=== PATIENT | male | born 1945 | race Caucasian/White ===

== ENCOUNTER 2017-09-10 04:44 | Inpatient (IN) | payer OTHER ==
[~2017-09-10] VITALS: Ht 172.7 cm; Wt 123.4 kg
[~2017-09-10 04:44] MED LIST: ACETAMINOPHEN650 M5 PO; ALDACTONE50 MG PO; AMARYL4 MG PO; APAP650 PO; ASCRIPTIN 325325 MG PO; ASPIR 8181 MG PO; ASPIRIN325 PO; ATORVASTATIN CA40 MG PO; CARVEDILOL25 MG; CARVEDILOL25 MG PO; CARVEDILOL6.25 MG PO; COLACE100 MG PO; COZAAR 50 MG TA50 M2 PO; CYCLOSET0.8 MG PO; IBUPROFEN 200200 M1 PO; KETOCONAZOLE60 GM; LANTUS SQ; LASIX 20 MG TAB20 MG PO; LASIX 40 MG TAB40 M2 PO; LASIX 80 MG TAB80 MG PO; LISINOPRIL10 MG PO; LISINOPRIL20 MG PO; LOVASTAT40 PO; MULTIVITAMINS1 EAC7 PO; TOUCH-TROL1 EACH; TOUJEO SOL300 UNIT/1 SQ; TOUJEO SOL300 UNIT/1 SUBQ; TRADJENTA5 MG PO; TYLENOL325 MG PO; WELCHOL 625 MG625 MG PO
[2017-09-10 04:45] VITALS: BP 157/94
[2017-09-10 05:07] LABS: URINE BILIRUBIN NEGATIVE (Negative); URINE BLOOD NEGATIVE (Negative); URINE CLARITY CLEAR; URINE COLOR YELLOW; URINE GLUCOSE-RANDOM 1+ (Negative); URINE KETONES NEGATIVE (Negative); URINE LEUKOCYTES-REFLEX NEGATIVE (Negative); URINE NITRITE-REFLEX NEGATIVE (Negative); URINE PROTEIN 2+ (Negative); URINE SPECIFIC GRAVITY >= 1.030 (1.005-1.030); URINE UROBILINOGEN 0.2 E.U./dl (0.2-1.0)
[2017-09-10 05:18] LABS: ABSOLUTE BASOPHILS 0.1 thou/uL (0.0-0.2); ABSOLUTE EOSINOPHILS 0.2 thou/uL (0.0-0.7); ABSOLUTE LYMPHOCYTES 1.7 thou/uL (0.8-5.3); ABSOLUTE MONOCYTES 0.6 thou/uL (0.0-1.2); ABSOLUTE NEUTROPHILS 6.8 thou/uL (1.6-8.1); BASOPHILS 0.6 %; EOSINOPHILS 2.3 %; HEMATOCRIT 33.3 % (42.0-52.0); HEMOGLOBIN 11.2 gm/dL (14.0-18.0); LYMPHOCYTES 18.6 %; MCH 29.8 pg (26.0-34.0); MCHC 33.5 g/dL (28.0-37.0); MONOCYTES 6.6 %; MPV 7.4 fl. (7.2-11.1); NUCLEATED RBCS 0 /100WBC; PLATELET COUNT* 357 thou/uL (150-400); POLYS 71.9 %; RBC 3.74 mil/uL (4.50-6.00); RDW-CV 14.2 % (10.5-14.5); WBC 9.4 thou/uL (4.0-11.0)
[2017-09-10 05:19] LABS: SQUAMOUS 0-3 Few /LPF (0-3)
[2017-09-10 05:20] LABS: AMORPHOUS URATES Moderate /LPF (None Seen); BACTERIA-REFLEX 1-9 Few /HPF (None Seen); CASTS None Seen /LPF (None Seen); MUCUS 0-3 Light strn/LPF (None Seen); URINE RBC 0-2 Rare /HPF (0-2); URINE WBC-REFLEX 0-5 Rare /HPF (0-5)
[2017-09-10 05:27] LABS: ANION GAP 4 mmol/L (7-16); BUN 29 mg/dL (7-18); CALCIUM 8.2 mg/dL (8.5-10.1); CHLORIDE 103 mmol/L (98-107); CO2 30 mmol/L (21-32); CREATININE 1.4 mg/dL (0.6-1.3); GLUCOSE 273 mg/dL (70-99); POTASSIUM 4.5 mmol/L (3.5-5.1); SODIUM 137 mmol/L (136-145)
[2017-09-10 05:32] LABS: PROTIME 9.9 Seconds (9.20-11.50)
[2017-09-10 05:38] LABS: ALBUMIN 2.8 g/dL (3.4-5.0); ALKALINE PHOSPHATASE 96 U/L (46-116); NT-PRO BRAIN NAT PEPTIDE 2800 pg/mL (<300); SGOT 18 U/L (15-37); SGPT 27 U/L (30-65); TOTAL BILIRUBIN 0.4 mg/dL (<0.1-1.0); TOTAL PROTEIN 6.4 g/dL (6.4-8.2); TROPONIN-I LEVEL <0.06 ng/mL (<0.06)
[2017-09-10 06:03] LABS: INFLUENZA A ANTIGEN None Detected (None Detect); INFLUENZA B ANTIGEN None Detected (None Detect)
[2017-09-10 07:48] VITALS: BP 161/89
[2017-09-10 08:00] VITALS: BP 106/89
[2017-09-10 11:51] VITALS: BP 165/82
--- NOTE | 2017-09-10 12:59 | EKG ---
[place] [address] ELECTROCARDIOGRAM REPORT Name: ALBARO HALE Room: [address] ADM IN .R.#: [id number] Admission: 09/10/17 Attend Phys: Eric Mullen Discharge: Date of : 43 Report #: [id number] THIS REPORT FOR: //name// [facility] ED Test Date: 2017-09-10 Test Time: 04:48:12 Pat Name: ALBARO HALE Department: Room: [facility] Gender: M Assistant Store Manager Operations: GUSTAVO Grewal : 1945 Requested By: Taylor Vazquez Order Number: [id number] MD: Jack Ellis Measurements Intervals [place] Rate: 73 P: 61 MO: 194 QRS: -1 QRSD: 159 T: 152 QT: 429 QTc: 473 Interpretive Statements Sinus rhythm Left bundle branch block Compared to ECG 11/06/2015 05:33:38 No significant changes Electronically Signed On 09-10-2017 12:59:39 CORE SHAPER SIDES by Jack Ellis [email or web address] <ELECTRONICALLY SIGNED> By: Jack Ellis MD, [facility] 09/10/17 1259 0448 0448 Jack Ellis MD, FACC /EPI
--- NOTE | 2017-09-10 15:22 | 2DMMODE ---
[place] [address] 2 D/M-MODE ECHOCARDIOGRAM Name: ALBARO HALE Room: [address] IN [facility]#: [id number] Admission: 09/10/17 Attend Phys: Brain Herring Discharge: Date of : 43 Date of Service: 09/10/17 1522 Report #: [id number] THIS REPORT FOR: //name// APPROVED REPORT Study performed: 09/10/2017 09:45:36 EXAM: Comprehensive 2D, Doppler, and color-flow Echocardiogram Patient Location: In-Patient Room #: [facility] Status: routine BSA: 2.33 HR: 87 bpm BP: 106/89 mmHg Rhythm: NSR Other Information Technically limited study due to body habitus. Indications Dyspnea 2D Dimensions LVEF(%): 63.64 (>50%) IVSd: 15.27 (7-11mm) LVOT Diam: 23.12 (18-24mm) LVDd: 56.40 mm PWd: 10.92 (7-11mm) Ascending Ao: 34.11 (22-36mm) LVDs: 36.64 (25-40mm) Aortic Root: 35.04 mm Ocampo's LVEF: 63.64 % Volumes Left Atrial Volume (Systole) LA ESV Index: 46.00 mL/m2 Aortic Valve AoV Peak Rafael.: 1.13 m/s AO Peak Gr.: 5.11 mmHg LVOT Max P.86 mmHg AO Mean Gr.: 3.16 mmHg LVOT Mean P.23 mmHg LVOT Max V: 1.10 m/s AO V2 VTI: 21.65 cm LVOT Mean V: 0.68 m/s ROME (VTI): 4.01 cm2 LVOT V1 VTI: 20.67 cm Mitral Valve MV Decel. Time: 185.34 [place] [address] 2 D/M-MODE ECHOCARDIOGRAM Name: ALBARO HALE Stanislav Room: [address] IN [facility]#: [id number] Admission: 09/10/17 Attend Phys: Brain Herring Discharge: Date of : 43 Date of Service: 09/10/17 1522 Report #: [id number] MV PHT: 53.75 ms MVA (PHT): 4.09 cm2 TDI Medial E' Rafael.: 0.13 m/s Lateral E' Rafael.: 0.14 m/s Pulmonary Valve PV Peak Rafael.: 0.77 m/s PV Peak Gr.: 2.39 mmHg Tricuspid Valve TR Peak Gr.: 41.07 mmHg RVSP: 51.00 mmHg Left Ventricle The left ventricle is normal size. There is mild global hypokinesis. There is septal dyssynergy consistent with left bundle-branch block. There is normal left ventricular wall thickness. Left ventricular systolic function is mildly decreased. LVEF is 45-50%. Transmitral Doppler flow pattern suggests restrictive physiology. Right Ventricle The right ventricle is normal size. The right ventricular systolic function is normal. Atria Left atrium is moderately dilated. The right atrium is moderately dilated. Aortic Valve The aortic valve is normal in structure. No aortic regurgitation is present. There is no aortic valvular stenosis. Mitral Valve The mitral valve is normal in structure. Trace mitral regurgitation. No evidence of mitral valve stenosis. Tricuspid Valve The tricuspid valve is normal in structure. Mild tricuspid regurgitation. The RVSP is 55-60 mmHg. Pulmonic Valve The pulmonary valve is normal in structure. There is no pulmonic valvular regurgitation. Great Vessels The aortic root is normal in size. IVC [place] [address] 2 D/M-MODE ECHOCARDIOGRAM Name: ALBARO HALE Room: [address] IN [facility]#: [id number] Admission: 09/10/17 Attend Phys: Brain Herring Discharge: Date of : 43 Date of Service: 09/10/17 1522 Report #: [id number] <50% with inspiration. Pericardium There is no pericardial effusion. <Conclusion> The left ventricle is normal size. There is normal left ventricular wall thickness. Left ventricular systolic function is mildly decreased. LVEF is 45-50%. Transmitral Doppler flow pattern suggests restrictive physiology. There is mild global hypokinesis. There is septal dyssynergy consistent with left bundle-branch block. Left atrium is moderately dilated. The right atrium is moderately dilated. Mild tricuspid regurgitation. The RVSP is 55-60 mmHg. IVC is dilated and collapses <50% with inspiration. <ELECTRONICALLY SIGNED> By: Lazaro Patiño MD, FACC 09/10/17 1522 152 152 Lazaro Patiño MD, FACC /INF
[2017-09-10 15:31] VITALS: BP 179/88
[2017-09-10 20:00] VITALS: BP 163/79
[2017-09-11] VITALS: BP 124/56
[2017-09-11 04:00] VITALS: BP 146/75
[2017-09-11 05:36] LABS: HEMATOCRIT 32.9 % (42.0-52.0); HEMOGLOBIN 10.9 gm/dL (14.0-18.0); MCH 29.2 pg (26.0-34.0); MCHC 33.1 g/dL (28.0-37.0); MCV 88.1 fL (80.0-100.0); MPV 7.5 fl. (7.2-11.1); NUCLEATED RBCS 0 /100WBC; PLATELET COUNT* 353 thou/uL (150-400); RBC 3.74 mil/uL (4.50-6.00); RDW-CV 14.1 % (10.5-14.5); WBC 14.1 thou/uL (4.0-11.0)
[2017-09-11 06:31] LABS: ABSOLUTE LYMPHOCYTES 1.4 thou/uL (0.8-5.3); ABSOLUTE MONOCYTES 0.6 thou/uL (0.0-1.2); ABSOLUTE NEUTROPHILS 12.1 thou/uL (1.6-8.1); ATYPICAL LYMPHS 2 %
[2017-09-11 06:32] LABS: PLATELET ESTIMATE ADEQUATE
[2017-09-11 06:40] LABS: CALCIUM 8.2 mg/dL (8.5-10.1); CREATININE 1.4 mg/dL (0.6-1.3); POTASSIUM 4.3 mmol/L (3.5-5.1)
--- NOTE | 2017-09-11 07:36 | CON ---
[address] [address] CONSULTATION Name: ALBARO HALE Room: [address] IN M.R.#: [id number] Admission: 09/10/17 Attend Phys: Eric Mullen Discharge: Date of : 43 Report #: [id number] THIS REPORT FOR: //name// CC: Vinicio Vargas MD [facility] Annita Gomez TYPE OF REPORT: Cardiology consultation. INDICATION: Acute heart failure. HISTORY OF PRESENT ILLNESS: The patient is a very pleasant 72-year-old gentleman with history of nonischemic cardiomyopathy remotely with normalization of left ventricular systolic function on medications. In the interim, he has been diagnosed with diastolic heart failure. He had an exacerbation remotely. He returned to the hospital with acute onset shortness of breath. He reports that his blood pressure has been elevated for the past 10 years. Chest x-ray showed mild pulmonary vascular congestion per my read. His NT-pro-BNP was elevated. He did have symptomatic response with IV Lasix and significant diuresis. Presently, he is not having shortness of breath. He denies chest pain throughout. His troponins are less than 0.06 on 2 separate occasions. EKG shows sinus rhythm with left bundle-branch block. PAST MEDICAL HISTORY: 1. Cardiomyopathy. 2. CVA. 3. Degenerative joint disease. 4. Erectile dysfunction. 5. Heart failure. 6. Hyperlipidemia. 7. Hypertension. 8. Chronic left bundle-branch block. 9. Obstructive sleep apnea. 10. Type 2 diabetes mellitus. PAST SURGICAL HISTORY: 1. Foot surgery. 2. Hernia surgery. FAMILY HISTORY: Noncontributory. SOCIAL HISTORY: The patient is a former smoker, quit 22 years ago. He drinks alcohol socially. ALLERGIES: [place] [address] CONSULTATION Name: ALBARO HALE Room: [address]#: [id number] Admission: 09/10/17 Attend Phys: Eric Mullen Discharge: Date of : 43 Report #: [id number] CURRENT MEDICATIONS: Tylenol p.r.n., aspirin 81 mg at night, atorvastatin 40 mg daily, carvedilol 25 mg b.i.d., furosemide 40 mg daily, glimepiride 4 mg b.i.d., Toujeo insulin 35 units subcutaneously b.i.d., losartan 100 mg daily and multivitamin 1 tablet daily. REVIEW OF SYSTEMS: On 14-point review of systems, the patient reports a heart murmur and type 2 diabetes mellitus and he wears glasses without acute visual change, otherwise without complaint. PHYSICAL EXAMINATION: VITAL SIGNS: Blood pressure 165/82, pulse 72 and regular. GENERAL: This is a pleasant gentleman who is in no distress. Mood and affect appropriate. HEENT: The patient is wearing glasses. Extraocular muscles intact. Mucous membranes moist. NECK: Shows no jugular venous distention. There are no carotid bruits. CHEST: Chest reveals clear lung zaman without wheezes or rales. CARDIOVASCULAR: Reveals a regular rhythm with normal S1 and S2. I do not appreciate gallop or murmur. ABDOMEN: Reveals a protuberant abdomen with normal bowel sounds. EXTREMITIES: Shows 2+ edema of the right lower extremity to the knee and 1+ edema of the left lower extremity to the knee. Skin is warm and dry. Peripheral pulses 2+ and palpable. RADIOLOGICAL DATA: A 12-lead EKG shows sinus rhythm with left bundle-branch block. LABORATORY DATA: Labs are reviewed. Electrolytes within normal limits. BUN 29, creatinine 1.4 and serum glucose 273. Troponin less than 0.06 on 2 separate occasions. NT-pro-BNP 2800. IMPRESSION AND RECOMMENDATIONS: 1. Acute on chronic diastolic heart failure. Continue IV Lasix. Consider addition of metolazone if diuresis is not prompt with IV Lasix. 2. History of cardiomyopathy. Repeat echocardiogram results pending. 3. Hypertension. Continue carvedilol at current dose. Continue losartan at current dose. We will follow after diuresis and see if additional medications may be indicated. 4. Renal insufficiency that appears chronic, with possible acute exacerbation. We will follow serial labs. 5. Obstructive sleep apnea. Continue continuous positive airway pressure. <ELECTRONICALLY SIGNED> By: Lazaro Patiño MD, FACC 09/11/17 0736 1514 07Lazaro Patiño MD, FACC /nt
[2017-09-11 07:45] VITALS: BP 135/65
[2017-09-11] MEDS ORDERED: LASIX 80 MG TAB80 MG PO (08:47)
[2017-09-11 09:54] VITALS: BP 135/65
[2017-09-11 12:00] VITALS: BP 154/76
[2017-09-12 02:10] LABS: GLYCOHEMOGLOBIN (HGB A1C) 11.3 % (4.8-5.6)
== END 2017-09-11 16:45 | disposition home or self-care (01) | DRG 291 ==
LOC: M.ERS 04:44 → M.TBA-ER 06:10 → M.2W 06:10
PROVIDERS: Emergency Medicine; Family Medicine; Internal Medicine; ADMIT Internal Medicine
DX: I13.0 Hypertensive heart and chronic kidney disease with heart failure and stage 1 through stage 4 chronic kidney disease, or unspecified chronic kidney disease (principal); J96.00 Acute respiratory failure, unspecified whether with hypoxia or hypercapnia; I50.33 Acute on chronic diastolic (congestive) heart failure; N17.9 Acute kidney failure, unspecified; I42.9 Cardiomyopathy, unspecified; E11.65 Type 2 diabetes mellitus with hyperglycemia; E11.22 Type 2 diabetes mellitus with diabetic chronic kidney disease; N18.9 Chronic kidney disease, unspecified; D64.9 Anemia, unspecified; E78.00 Pure hypercholesterolemia, unspecified; M19.90 Unspecified osteoarthritis, unspecified site; E78.5 Hyperlipidemia, unspecified; G47.33 Obstructive sleep apnea (adult) (pediatric); Z79.899 Other long term (current) drug therapy; Z83.3 Family history of diabetes mellitus; Z82.49 Family history of ischemic heart disease and other diseases of the circulatory system; Z87.891 Personal history of nicotine dependence; Z86.73 Personal history of transient ischemic attack (TIA), and cerebral infarction without residual deficits; Z79.82 Long term (current) use of aspirin

== ENCOUNTER → 2017-10-21 | Outpatient (CLI) | payer OTHER ==
[2017-10-21 10:01] LABS: CALCIUM 9.3 mg/dL (8.5-10.1); CREATININE 1.2 mg/dL (0.6-1.3); MAGNESIUM 1.9 mg/dL (1.8-2.4); POTASSIUM 4.5 mmol/L (3.5-5.1)
== END ==
LOC: M.LAB 09:34
PROVIDERS: Internal Medicine
DX: I50.42 Chronic combined systolic (congestive) and diastolic (congestive) heart failure (principal)

== ENCOUNTER 2018-09-20 20:15 | Inpatient (IN) | payer OTHER ==
[~2018-09-20] VITALS: Ht 177.8 cm; Wt 108.4 kg
[2018-09-20 20:48] VITALS: BP 151/108
[2018-09-20 21:08] LABS: ABSOLUTE BASOPHILS 0.1 thou/uL (0.0-0.2); ABSOLUTE EOSINOPHILS 0.2 thou/uL (0.0-0.7); ABSOLUTE MONOCYTES 0.6 thou/uL (0.0-1.2); BASOPHILS 0.6 %; EOSINOPHILS 2.6 %; HEMATOCRIT 39.7 % (42.0-52.0); HEMOGLOBIN 13.3 gm/dL (14.0-18.0); LYMPHOCYTES 25.4 %; MCH 29.8 pg (26.0-34.0); MCHC 33.5 g/dL (28.0-37.0); MONOCYTES 7.3 %; MPV 7.9 fl. (7.2-11.1); NUCLEATED RBCS 0 /100WBC; PLATELET COUNT* 360 thou/uL (150-400); POLYS 64.1 %; RBC 4.47 mil/uL (4.50-6.00); RDW-CV 14.7 % (10.5-14.5); WBC 7.8 thou/uL (4.0-11.0)
[2018-09-20 21:26] LABS: ALBUMIN 2.8 g/dL (3.4-5.0); CALCIUM 8.3 mg/dL (8.5-10.1); CREATININE 1.4 mg/dL (0.6-1.3); POTASSIUM 4.3 mmol/L (3.5-5.1); TOTAL BILIRUBIN 0.4 mg/dL (<0.1-1.0); TOTAL PROTEIN 6.9 g/dL (6.4-8.2)
[2018-09-20 21:27] LABS: TROPONIN-I LEVEL 3.71 ng/mL (<0.06)
[2018-09-20] MEDS ORDERED: LASIX 40 MG TAB40 M2 PO (21:42)
[2018-09-20 23:26] VITALS: BP 151/89
[2018-09-20 23:30] VITALS: BP 143/90
[2018-09-21] VITALS (22 sets, daily range): BP systolic 115–153; BP diastolic 53–104
[2018-09-21 10:20] LABS: CHOLESTEROL 109 mg/dL (<200); HDL CHOLESTEROL 35 mg/dL (>40); LDL CHOLESTEROL 56 mg/dL (<100); TC:HDL 3.1 Ratio (Not establshd); TRIGLYCERIDE 92 mg/dL (<150); VLDL 18 mg/dL (<40)
[2018-09-21 10:21] LABS: SERUM ASSESSMENT Clear
--- NOTE | 2018-09-21 12:54 | EKG ---
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
--- NOTE | 2018-09-21 12:56 | EKG ---
[place] [address] ELECTROCARDIOGRAM REPORT Name: ALBARO HALE Room: [address] ADM IN M.R.#: [id number] Admission: 09/20/18 Attend Phys: Robbie Beck MD Discharge: Date of : 43 Report #: [id number] THIS REPORT FOR: //name// [facility] Test Date: 2018-09-21 Test Time: 02:39:37 Pat Name: ALBARO HALE Department: Room: [address] Gender: M Underwriting Manager: MJ : 1945 Requested By: Lazaro Patiño Order Number: [id number] Velma MD: Cristóbal Akers Measurements Intervals [place] Rate: 78 P: [place]: QRS: -6 QRSD: 161 T: 171 QT: 429 QTc: 489 Interpretive Statements Atrial fibrillation Left bundle branch block Baseline wander in lead(s) V5 Compared to ECG 09/10/2017 04:48:12 Sinus rhythm no longer present Electronically Signed On 09-21-2018 12:56:21 FISHERIES MANAGEMENT BIOLOGIST by Cristóbal Akers [email or web address] <ELECTRONICALLY SIGNED> By: Cristóbal Akers MD, [facility] 09/21/18 1256 0239 0239 Cristóbal Akers MD, FAC /EPI
[2018-09-21 15:11] LABS: HEMOGLOBIN 11.6 gm/dL (14.0-18.0); MCH 29.7 pg (26.0-34.0); MCHC 33.1 g/dL (28.0-37.0); MCV 89.7 fL (80.0-100.0); MPV 7.6 fl. (7.2-11.1); PLATELET COUNT* 295 thou/uL (150-400); RDW-CV 14.8 % (10.5-14.5)
[2018-09-21 15:14] LABS: BE 2.1 mmol/L (-2 to +3); PO2 87.3 mmHg (75.0-100.0)
[2018-09-21 15:22] LABS: ABSOLUTE LYMPHOCYTES 0.8 thou/uL (0.8-5.3); ABSOLUTE MONOCYTES 0.4 thou/uL (0.0-1.2); ABSOLUTE NEUTROPHILS 6.7 thou/uL (1.6-8.1); BASOPHILS 0.6 %; EOSINOPHILS 0.2 %; LYMPHOCYTES 10.4 %; MONOCYTES 4.6 %; POLYS 84.2 %; pH 7.263 (7.340-7.450)
[2018-09-21 15:23] LABS: PCO2 69.9 mmHg (35.0-45.0)
[2018-09-21 15:29] LABS: CALCIUM 8.2 mg/dL (8.5-10.1); CREATININE 1.3 mg/dL (0.6-1.3); MAGNESIUM 1.8 mg/dL (1.8-2.4); POTASSIUM 4.6 mmol/L (3.5-5.1)
[2018-09-21 15:32] LABS: TROPONIN-I LEVEL 28.39 ng/mL (<0.06)
--- NOTE | 2018-09-21 16:21 | 2DMMODE ---
[place] [address] 2 D/M-MODE ECHOCARDIOGRAM Name: ALBARO HALE Room: [address] IN [facility]#: [id number] Admission: 09/20/18 Attend Phys: Robbie Beck MD Discharge: Date of : 43 Date of Service: 09/21/18 1620 Report #: [id number] THIS REPORT FOR: //name// APPROVED REPORT Study performed: 09/21/2018 14:24:46 EXAM: Comprehensive 2D, Doppler, and color-flow Echocardiogram Patient Location: In-Patient Room #: [facility] Status: routine BSA: 2.24 HR: 79 bpm BP: 148/86 mmHg Rhythm: Atrial Fibrillation Other Information Study Quality: Good Indications Acute UT Atrial Fibrillation Chest Pain 2D Dimensions IVSd: 15.32 (7-11mm) LVOT Diam: 23.58 (18-24mm) LVDd: 48.05 mm PWd: 14.67 (7-11mm) LVDs: 36.77 (25-40mm) Aortic Root: 38.15 mm Volumes Left Atrial Volume (Systole) LA ESV Index: 38.60 mL/m2 Aortic Valve AoV Peak Rafael.: 0.86 m/s AO Peak Gr.: 2.99 mmHg LVOT Max P.09 mmHg AO Mean Gr.: 1.93 mmHg LVOT Mean P.07 mmHg LVOT Max V: 0.72 m/s AO V2 VTI: 13.39 cm LVOT Mean V: 0.47 m/s ROME (VTI): 4.00 cm2 LVOT V1 VTI: 12.26 cm Mitral Valve MV Decel. Time: 180.20 [place] [address] 2 D/M-MODE ECHOCARDIOGRAM Name: ALBARO HALE Room: [address] IN [facility]#: [id number] Admission: 09/20/18 Attend Phys: Robbie Beck MD Discharge: Date of : 43 Date of Service: 09/21/18 1620 Report #: [id number] MV PHT: 52.26 ms MVA (PHT): 4.21 cm2 Pulmonary Valve PV Peak Rafael.: 0.68 m/s PV Peak Gr.: 1.87 mmHg Tricuspid Valve RAP Estimate: 10.00 mmHg TR Peak Gr.: 28.25 mmHg RVSP: 38.00 mmHg PA Pressure: 38.00 mmHg Left Ventricle The left ventricle is normal size. There is moderate diffuse hypokinesis of left ventricular wall motion. Moderate concentric left ventricular hypertrophy. Left ventricular systolic function is moderately decreased. LVEF is 35-40%. Right Ventricle Right ventricle is mild to moderately dilated. The right ventricular systolic function is normal. Atria Left atrium is mildly dilated. The right atrium size is normal. Aortic Valve Mild aortic valve sclerosis. No aortic regurgitation is present. There is no aortic valvular stenosis. Mitral Valve Mild mitral annular calcification. Trace mitral regurgitation. No evidence of mitral valve stenosis. Tricuspid Valve The tricuspid valve is normal in structure. Mild tricuspid regurgitation. Mild pulmonary hypertension. Pulmonic Valve The pulmonary valve is normal in structure. There is no pulmonic valvular regurgitation. Great Vessels The aortic root is normal in size. IVC is dilated. Pericardium There is no pericardial [place] [address] 2 D/M-MODE ECHOCARDIOGRAM Name: ALBARO HALE Stanislav Room: [address] IN .R.#: [id number] Admission: 09/20/18 Attend Phys: Robbie Beck MD Discharge: Date of : 43 Date of Service: 09/21/18 1620 Report #: [id number] effusion. <Conclusion> The left ventricle is normal size. Moderate concentric left ventricular hypertrophy. Left ventricular systolic function is moderately decreased. LVEF is 35-40%. Right ventricle is mild to moderately dilated. Left atrium is mildly dilated. Mild aortic valve sclerosis. No aortic regurgitation is present. There is no aortic valvular stenosis. Mild mitral annular calcification. Trace mitral regurgitation. No evidence of mitral valve stenosis. The tricuspid valve is normal in structure. Mild tricuspid regurgitation. Mild pulmonary hypertension. IVC is dilated. There is no pericardial effusion. There is moderate diffuse hypokinesis of left ventricular wall motion. <ELECTRONICALLY SIGNED> By: Cristóbal Akers MD, FACC 09/21/18 162 19 19 Cristóbal Akers MD, FACC /INF
--- NOTE | 2018-09-21 16:35 | EKG ---
[place] [address] ELECTROCARDIOGRAM REPORT Name: ALBARO HALE Room: [address] ADM IN M.R.#: [id number] Admission: 09/20/18 Attend Phys: Robbie Beck MD Discharge: Date of : 43 Report #: [id number] THIS REPORT FOR: //name// [facility] Test Date: 2018-09-21 Test Time: 09:04:48 Pat Name: ALBARO HALE Department: Room: [address] Gender: M Research Programmer: : 1945 Requested By: Lazaro Patiño Order Number: [id number] Velma MD: Cristóbal Akers Measurements Intervals [place] Rate: 75 P: [place]: QRS: -2 QRSD: 164 T: 168 QT: 460 QTc: 514 Interpretive Statements Atrial fibrillation Left bundle branch block Compared to ECG 09/21/2018 02:39:37 No significant changes Electronically Signed On 09-21-2018 16:35:16 CLIENT SERVICE SUPERVISOR by Cristóbal Akers [email or web address] <ELECTRONICALLY SIGNED> By: Cristóbal Akers MD, [facility] 09/21/18 1635 0904 3 Cristóbal Akers MD, FACC /EPI
--- NOTE | 2018-09-21 16:37 | EKG ---
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: : 1945 Requested By: Lazaro Patiño Order Number: [id number] Velma MD: Cristóbal Akers Measurements Intervals [place] Rate: 78 P: [place]: QRS: 32 QRSD: 166 T: 188 QT: 431 QTc: 491 Interpretive Statements Atrial fibrillation Left bundle branch block Baseline wander in lead(s) I Compared to ECG 09/21/2018 02:39:37 No significant changes Electronically Signed On 09-21-2018 16:37:27 CLEANER LABORATORY EQUIPMENT by Cristóbal Akers [email or web address] <ELECTRONICALLY SIGNED> By: Cristóbal Akers MD, [facility] 09/21/18 1637 1142 1142 Cristóbal Akers MD, FAC /EPI
[2018-09-21 18:55] LABS: BE 0.8 mmol/L (-2 to +3); PO2 96.2 mmHg (75.0-100.0); pH 7.311 (7.340-7.450)
[2018-09-21 19:01] LABS: PCO2 57.4 mmHg (35.0-45.0)
[2018-09-22] VITALS: BP 137/90
[2018-09-22 04:00] VITALS: BP 135/86
[2018-09-22 05:01] LABS: HEMATOCRIT 36.4 % (42.0-52.0); HEMOGLOBIN 12.1 gm/dL (14.0-18.0); MCH 29.4 pg (26.0-34.0); MCHC 33.3 g/dL (28.0-37.0); MCV 88.5 fL (80.0-100.0); MPV 7.7 fl. (7.2-11.1); RBC 4.12 mil/uL (4.50-6.00); RDW-CV 14.8 % (10.5-14.5); WBC 10.6 thou/uL (4.0-11.0)
[2018-09-22 05:25] LABS: ALBUMIN 2.5 g/dL (3.4-5.0); CALCIUM 8.7 mg/dL (8.5-10.1); CREATININE 1.8 mg/dL (0.6-1.3); POTASSIUM 3.8 mmol/L (3.5-5.1); TOTAL BILIRUBIN 0.7 mg/dL (<0.1-1.0); TOTAL PROTEIN 6.3 g/dL (6.4-8.2)
[2018-09-22 07:30] VITALS: BP 137/80
[2018-09-22 13:12] VITALS: BP 150/91
--- NOTE | 2018-09-22 16:02 | EKG ---
[place] [address] ELECTROCARDIOGRAM REPORT Name: ALBARO HALE Room: [address] ADM IN M.R.#: [id number] Admission: 09/20/18 Attend Phys: Robbie Beck MD Discharge: Date of : 43 Report #: [id number] THIS REPORT FOR: //name// [facility] Test Date: 2018-09-21 Test Time: 15:21:18 Pat Name: ALBARO BRANDTNIS Department: Room: [address] Gender: M Nurse Substance Abuse: : 1945 Requested By: Brain Herring Order Number: [id number] Velma MD: Cristóbal Akers Measurements Intervals [place] Rate: 95 P: [place]: QRS: 21 QRSD: 179 T: 193 QT: 452 QTc: 569 Interpretive Statements Atrial fibrillation Left bundle branch block Baseline wander in lead(s) I,II,III,aVR,aVL,aVF,V1,V2,V3,V4,V5,V6 Compared to ECG 09/21/2018 11:42:34 No significant changes Electronically Signed On 09-22-2018 16:02:10 ROD MACHINE OPERATOR by Cristóbal Akers [email or web address] <ELECTRONICALLY SIGNED> By: Cristóbal Akers MD, [facility] 09/22/18 1602 1521 1521 Cristóbal Akers MD, [facility] /EPI
--- NOTE | 2018-09-22 16:07 | EKG ---
[place] [address] ELECTROCARDIOGRAM REPORT Name: ALBARO HALE Room: [address] ADM IN M.R.#: [id number] Admission: 09/20/18 Attend Phys: Robbie Beck MD Discharge: Date of : 43 Report #: [id number] THIS REPORT FOR: //name// [facility] Test Date: 2018-09-22 Test Time: 08:32:56 Pat Name: ALBARO HALE Department: Room: [address] Gender: M Take Out Waiter: : 1945 Requested By: Lazaro Patiño Order Number: [id number] Velma MD: Cristóbal Akers Measurements Intervals [place] Rate: 86 P: [place]: QRS: 18 QRSD: 160 T: 183 QT: 424 QTc: 508 Interpretive Statements Atrial fibrillation Left bundle branch block Compared to ECG 09/21/2018 11:42:34 No significant changes Electronically Signed On 09-22-2018 16:07:27 LIGHTING SPECIALIST by Cristóbal Akers [email or web address] <ELECTRONICALLY SIGNED> By: Cristóbal Akers MD, [facility] 09/22/18 1607 0832 0832 Cristóbal Akers MD, FACC /EPI
[2018-09-22 16:53] VITALS: BP 147/91
[2018-09-22 19:00] VITALS: BP 135/77
[2018-09-23] VITALS: BP 145/89
[2018-09-23 04:00] VITALS: BP 145/91
[2018-09-23 07:57] VITALS: BP 144/66
[2018-09-23 11:12] LABS: URINE BILIRUBIN NEGATIVE (Negative); URINE BLOOD 3+ (Negative); URINE CLARITY CLEAR; URINE COLOR YELLOW; URINE GLUCOSE-RANDOM 1+ (Negative); URINE KETONES NEGATIVE (Negative); URINE LEUKOCYTES-REFLEX 1+ (Negative); URINE PROTEIN 3+ (Negative)
[2018-09-23 11:15] LABS: URINE NITRITE-REFLEX POSITIVE (Negative)
[2018-09-23 11:19] LABS: BACTERIA-REFLEX 1-9 Few /HPF (None Seen); CASTS None Seen /LPF (None Seen); CRYSTALS None Seen /LPF (None Seen); SQUAMOUS NONE SEEN /LPF (0-3); URINE RBC >20 Many /HPF (0-2); URINE WBC-REFLEX 6-15 Few /HPF (0-5)
[2018-09-23 11:51] LABS: CALCIUM 8.5 mg/dL (8.5-10.1); POTASSIUM 5.5 mmol/L (3.5-5.1)
[2018-09-23 11:59] VITALS: BP 163/97
[2018-09-23 12:07] LABS: CREATININE 3.7 mg/dL (0.6-1.3)
[2018-09-23 15:48] VITALS: BP 154/97
[2018-09-23 19:30] VITALS: BP 167/94
[2018-09-24 00:30] VITALS: BP 139/108
[2018-09-24 04:34] VITALS: BP 146/96
[2018-09-24 04:56] LABS: CALCIUM 8.7 mg/dL (8.5-10.1); CREATININE 4.6 mg/dL (0.6-1.3)
[2018-09-24 04:58] LABS: POTASSIUM 6.4 mmol/L (3.5-5.1)
[2018-09-24 07:15] LABS: CALCIUM 8.4 mg/dL (8.5-10.1); CREATININE 4.8 mg/dL (0.6-1.3)
[2018-09-24 07:21] LABS: POTASSIUM 6.1 mmol/L (3.5-5.1)
[2018-09-24 09:27] VITALS: BP 139/91
[2018-09-24 12:04] VITALS: BP 136/100
[2018-09-24 16:38] VITALS: BP 164/103
[2018-09-24 23:00] VITALS: BP 157/101
[2018-09-24 23:06] LABS: HEPATITIS B SURFACE AG Negative (Negative)
[2018-09-25 04:00] VITALS: BP 152/111
[2018-09-25 05:58] LABS: CREATININE 4.3 mg/dL (0.6-1.3); POTASSIUM 5.2 mmol/L (3.5-5.1)
[2018-09-25 06:40] VITALS: BP 126/102
[2018-09-25 08:00] VITALS: BP 140/94
[2018-09-25 11:48] VITALS: BP 123/80
--- NOTE | 2018-09-25 15:00 | CARD ---
[address] [address] CARDIAC CATH REPORT Name: ALBARO HALE Room: [address] IN .R.#: [id number] Admission: 09/20/18 Attend Phys: Robbie Beck MD Discharge: Date of : 43 Report #: [id number] THIS REPORT FOR: //name// ADDENDUM APPROVED REPORT Study performed: 09/21/2018 09:26:06 Patient Details Patient Status: In-Patient Room #: 213 The patient is a 73 year-old male Event Personnel Lazaro Patiño Dietary Supervisor, Carolyn Ramsey RN Boiler Tester, Omar Rehman Kucera, Brad Monitor, Holkins, John Industrial Security Analyst Procedures Performed Art Access - R femoral artery* , Selective Right and Left Coronary AngiographyLe Heart Cath w/or w/o Coronaries [id number] [facility] [address] w/wo Plasty Single LAD [id number] Procedure Narrative The patient was brought electively to the Cardiac Catheterization Laboratory and was prepped and draped in a sterile manner. The right femoral was infiltrated with 2% Lidocaine subcutaneous anesthesia. A 6fr Ultimum Sheath sheath was inserted into the right femoral artery. Coronary angiography was performed using coronary diagnostic catheters. The right coronary system was accessed and visualized with a 6fr JR 4 catheter. The left coronary system was accessed and visualized with a 6fr JL 4 catheter. The left ventricle was accessed and visualized with a 6fr Pigtail catheter. Left ventricular/Aortic Valve gradient assessed via catheter pullback. Left ventriculogram was performed in BROOKS projection. Pre-demployment femoral angiogram was performed . Closure device was deployed with a 6 Fr Angioseal STS 6Fr. The patient tolerated the procedure well and there were no complications associated with the procedure. Intraoperative Conscious Sedation Sedation start time: 10:00 Case end Time: 10:45 Fentanyl 25 mcg Versed 2 mg Fluoro Time: 14.2 minutes Dose: DAP 581123 cGycm2 3129.09 mGy Contrast Type and Amount: Visipaque 465 [place] [address] CARDIAC CATH REPORT Name: ALBARO HALE Room: [address] IN [facility]#: [id number] Admission: 09/20/18 Attend Phys: Robbie Beck MD Discharge: Date of : 43 Report #: [id number] Coronary Angiography The patient's coronary anatomy is right dominant. Diagnostic Cath Left Main Normal. LAD Minimal 10% plaquing in the proximal and midportion. The distal vessel is abruptly occluded right the apex. Very faint filling of the apical portion seen. Diagonal 1 Small in caliber and normal. Diagonal 2 50% narrowing in the midportion. The vessel is moderate in size. Circumflex Normal in the proximal mid and distal portion. OM1 Large branched and normal. OM2 Small in caliber and normal. Right Coronary 30% ostial and proximal narrowing. 20% focal narrowing in the distal vessel. R PDA Minimal 10% plaquing in the distal portion. RPLV Minimal 10% plaquing in the midportion. Left Ventriculography Left Ventriculography was not performed. Hemodynamics The aortic pressure is 155/82 mmHg with a mean of mmHg. The left ventricular pressure is 121/7 mmHg with a mean of mmHg. The left ventricular end diastolic pressure is 28 mmHg. There was no gradient across the aortic valve upon pullback. PCI Technique Lesion Anticoagulation was achieved with Angiomax. Patient was preloaded with Angiomax IV 16 mg per kg. Percutaneous coronary intervention was performed on the distal left anterior descending artery segment. A 6F XB LAD 3.5 Guide Catheter was used to engage the ostium. A IG: BMW 190cm Interventional Guidewire was used to cross the lesion. BALLOON DILATION A Balloon catheter Mini Trek RX 2.0 X 12 was inserted and inflated up to 8.00atm for 10seconds. Additional Inflation: 10.00atm for 5seconds. Additional Inflation: 8.00atm for 8seconds. STENT DEPLOYMENT A drug-eluting stent Chris RX Stent 2.0X12mm was inserted and inflated up to 8.00atm for 11seconds. POST STENT DEPLOYMENT [place] [address] CARDIAC CATH REPORT Name: ALBARO HALE Room: [address] IN [facility]#: [id number] Admission: 09/20/18 Attend Phys: Robbie Beck MD Discharge: Date of : 43 Report #: [id number] A Balloon catheter Mini Trek RX 1.5 X 8 was inserted and inflated up to 10.00atm for 9seconds. Additional Inflation: 12.00atm for 8seconds. Additional Inflation: 16.00atm for 7seconds. Final angiography reveals 0 % stenosis with WILLIAM 3 flow. Conclusion 1. Acute occlusion of the distal LAD. 2. Minimal plaquing in the circumflex and right coronary arteries. 3. Mildly elevated left ventricular end-diastolic pressure. 4. No gradient in the pullback across the RFL. #5 successful percutaneous coronary intervention with deployment of drug-eluting stent at site of 100% distal LAD occlusion with 0% residual narrowing at the stented site and WILLIAM-3 flow to the distal vessel Recommendations Cardiac Risk Reduction Program Aggressive Medical Therapy 1. Consider per continues coronary intervention to the distal left anterior descending coronary artery. 2. Continue aggressive risk factor modification. Medications Administered Aspirin (any) Ticagrelor <ELECTRONICALLY SIGNED> By: Cristóbal Akers MD, FACC 09/25/18 1500 1500 1500Jomyriam Akers MD, FACC /INF
[2018-09-25 16:07] LABS: IgA 174 mg/dL (61-437); IgG 654 mg/dL (700-1600); IgM 53 mg/dL (15-143)
[2018-09-25 20:00] VITALS: BP 117/67
[2018-09-26] VITALS (7 sets, daily range): BP systolic 130–149; BP diastolic 73–95
[2018-09-26 09:04] LABS: CALCIUM 7.7 mg/dL (8.5-10.1); CREATININE 3.9 mg/dL (0.6-1.3); POTASSIUM 4.4 mmol/L (3.5-5.1)
[2018-09-27] VITALS (7 sets, daily range): BP systolic 129–153; BP diastolic 77–93
[2018-09-27 05:05] LABS: CALCIUM 7.8 mg/dL (8.5-10.1); CREATININE 4.2 mg/dL (0.6-1.3); POTASSIUM 4.2 mmol/L (3.5-5.1)
--- NOTE | 2018-09-27 09:52 | CON ---
[address] [address] CONSULTATION Name: ALBARO HALE Room: [address] IN M.R.#: [id number] Admission: 09/20/18 Attend Phys: Robbie Beck MD Discharge: Date of : 43 Report #: [id number] THIS REPORT FOR: //name// CC: Tono Ivykristofer Robbie Beck DATE OF SERVICE: 09/22/2018 CONSULTING PHYSICIAN: Brain Herring DO. REASON FOR NEPHROLOGY CONSULTATION: Acute kidney injury, hyperkalemia. HISTORY OF PRESENT ILLNESS: This is a very pleasant 73-year-old male who does have a past medical history of chronic congestive heart failure, hypertension, hyperlipidemia, diabetes and history of chronic kidney disease stage 3 with baseline creatinine 1.2-1.4, came in on 09/20/2018 with left-sided chest pain, elevated troponin, non-STEMI. He underwent cardiac catheterization and 465 mL of contrast was used and this was done on 09/21/2018. His creatinine was 1.4 when he came in, went up to 1.8 on 09/22/2018 and then 3.7 yesterday and then 4.8 this morning. He had urinary retention when he came in, needed a Acosta catheter and was making good amount of urine, nonoliguric, but now he is almost anuric. He is still quite fluid overloaded and his potassium is 6.1 this morning. He was taking losartan at home. Denies using any NSAIDs. Denies any history of any kidney stones. Renal ultrasound did show nonobstructive kidney stones on the left side. No evidence of any obstruction. He was getting Lasix and potassium here in the hospital until yesterday, now stopped. His ejection fraction 35-40%. He is miserable with nausea. ALLERGIES: No known allergies. REVIEW OF SYSTEMS: As mentioned in history of present illness, otherwise 10-point review of systems is negative. ALLERGIES: No known allergies. HOME MEDICATIONS: Include Lasix, acetaminophen, glimepiride, carvedilol, losartan, aspirin, insulin glargine, potassium, multivitamin, atorvastatin. PAST MEDICAL AND SURGICAL HISTORY: Include hypertension, diabetes mellitus type 2, dyslipidemia, congestive heart failure, acute kidney injury in the past, chronic kidney disease, baseline creatinine 1.2-1.4, likely diabetic and hypertensive nephropathy and also because of vascular disease. FAMILY HISTORY: No family history of kidney problems. SOCIAL HISTORY: Does not smoke or drink alcohol or use illicit [place] [address] CONSULTATION Name: ALBARO HALE Room: [address]#: [id number] Admission: 09/20/18 Attend Phys: Robbie Beck MD Discharge: Date of : 43 Report #: [id number] at home with his son. PHYSICAL EXAMINATION: VITAL SIGNS: Blood pressure is 139/91, pulse rate 100, temperature 36.3, respiratory rate 16, pulse ox is 95% on 3 liters of oxygen by nasal cannula. GENERAL: He is awake. He is sitting by the bed. He is in mild distress because of nausea. HEAD, EYES, EARS, NOSE AND THROAT: Mucous membranes are moist. NECK: JVD cannot be ascertained. CHEST: Bilateral diminished breath sounds. No crackles. CARDIOVASCULAR: S1, S2 normal. No murmurs or rubs. ABDOMEN: Obese, otherwise soft, nondistended, nontender. LOWER EXTREMITIES: He has 2+ edema in bilateral lower extremities. NEUROLOGIC: Gross neurological function is intact. PSYCHIATRIC: Mood and affect seems to be normal. LABORATORY DATA: His hemoglobin is 12.1, potassium 6.1, sodium is 132 and creatinine 4.8. Troponin peak was 28.4 two days ago and other labs were reviewed. IMAGING: Renal ultrasound, chest x-ray and head CT were reviewed. ASSESSMENT: 1. Acute kidney injury on chronic kidney disease stage 3 due to contrast-induced nephropathy. The patient is almost anuric with hyperkalemia and also uremic. He was on losartan at home that was not continued in the hospital, but he was also on Lasix and potassium here in the hospital, which has now been stopped. Also, his ejection fraction is 35-40%. Received about 465 mL of dye and this was on 09/21/2018. Renal ultrasound shows bilateral echogenic kidneys with a left-sided nonobstructing nephrolithiasis with one stone as big as 10 mm. 2. Hyperkalemia in the setting of acute renal insufficiency and he was getting potassium supplementation, which has now been stopped. 3. Metabolic alkalosis. 4. Hyponatremia in the setting of renal insufficiency. 5. Microscopic hematuria and proteinuria, the urine specimen should be repeated once he recovers from his acute kidney injury. He is on antiplatelet therapy. 6. Non-ST elevation myocardial infarction and acute on chronic systolic congestive heart failure with ejection fraction of 35-40%, LAD stent placement 09/21/2018. PLAN: 1. The patient is uremic, hyperkalemic, anuric with acute kidney injury, will dialyze him today after temporary dialysis catheter is placed. This was discussed with the patient's nurse and patient's nurse will go ahead [place] [address] CONSULTATION Name: ALBARO HALE Room: [address] IN [facility]#: [id number] Admission: 09/20/18 Attend Phys: Robbie Beck MD Discharge: Date of : 43 Report #: [id number] 2. Till he gets dialyzed, we will medically manage potassium. 3. We will check him again for re-dialysis, developing dialysis needs tomorrow. 4. We will also check serum immunofixation, serum kappa to lambda light chain ratio. 5. I have stopped his morphine because of risk for neurotoxicity in the setting of renal insufficiency. I have also stopped his magnesium supplements. 6. We will also check a CPK. 7. Keep all nephrotoxic agents on hold. Avoid IV contrast, NSAIDs. Thank you for the consultation. I spent more than 45 minutes in patient's critical care. This time was spent reviewing the patient's record, placing orders, examining the patient and discussion with the patient, and we will continue to follow along with you. <ELECTRONICALLY SIGNED> By: Zara Majano MD 09/27/18 0952 [id number] [id number] Majano MD /nt
[2018-09-27 12:08] LABS: KAPPA FREE LIGHT CHAINS 63.8 mg/L (3.3-19.4); LAMBDA FREE LIGHT CHAINS 45.1 mg/L (5.7-26.3)
[2018-09-28 04:00] VITALS: BP 120/75
[2018-09-28 06:17] LABS: CALCIUM 7.7 mg/dL (8.5-10.1); CREATININE 3.9 mg/dL (0.6-1.3)
[2018-09-28 08:00] VITALS: BP 131/84
[2018-09-28 12:28] VITALS: BP 136/80
[2018-09-28 16:09] VITALS: BP 141/93
[2018-09-28 16:50] VITALS: BP 132/90
[2018-09-28 20:00] VITALS: BP 147/96
[2018-09-29] VITALS: BP 125/73
[2018-09-29 04:00] VITALS: BP 142/91
[2018-09-29 06:18] LABS: CALCIUM 7.9 mg/dL (8.5-10.1); CREATININE 3.4 mg/dL (0.6-1.3); POTASSIUM 4.1 mmol/L (3.5-5.1)
[2018-09-29 08:00] VITALS: BP 137/94
[2018-09-29 12:19] VITALS: BP 141/86
[2018-09-29 15:53] VITALS: BP 140/86
[2018-09-29 20:00] VITALS: BP 130/67
[2018-09-30] VITALS (9 sets, daily range): BP systolic 126–142; BP diastolic 78–94
[2018-09-30 04:55] LABS: HEMATOCRIT 34.8 % (42.0-52.0); HEMOGLOBIN 11.5 gm/dL (14.0-18.0); MCH 28.9 pg (26.0-34.0); MCHC 33.2 g/dL (28.0-37.0); MCV 87.1 fL (80.0-100.0); MPV 7.1 fl. (7.2-11.1); RBC 3.99 mil/uL (4.50-6.00); WBC 9.4 thou/uL (4.0-11.0)
[2018-09-30 05:36] LABS: CALCIUM 8.4 mg/dL (8.5-10.1); CREATININE 2.8 mg/dL (0.6-1.3); MAGNESIUM 1.9 mg/dL (1.8-2.4); POTASSIUM 4.1 mmol/L (3.5-5.1)
[2018-09-30] MEDS ORDERED: BRILINTA90 MG PO (12:56)
[2018-09-30] MEDS ORDERED: COLACE 100 MG100 MG PO (12:56)
[2018-09-30] MEDS ORDERED: ELIQUIS5 MG PO (12:57)
[2018-09-30] MEDS ORDERED: TOUJEO SOL300 UNIT/1 SUBQ (12:57)
== END 2018-09-30 15:38 | disposition home health service (06) | DRG 246 ==
LOC: M.ERS 20:15 → M.2W 21:26 → M.TBA-ER 21:26 → M.2W 22:46
PROVIDERS: Emergency Medicine; Internal Medicine; Internal Medicine Cardiovascular Disease; Registered Nurse; ADMIT Family Medicine
PROC: B41JYZZ Fluoroscopy of Other Lower Arteries using Other Contrast (ICD-10-PCS; principal; 2018-09-21)
PROC: 4A023N7 Measurement of Cardiac Sampling and Pressure, Left Heart, Percutaneous Approach (ICD-10-PCS; principal; 2018-09-21)
PROC: B211YZZ Fluoroscopy of Multiple Coronary Arteries using Other Contrast (ICD-10-PCS; principal; 2018-09-21)
PROC: B215YZZ Fluoroscopy of Left Heart using Other Contrast (ICD-10-PCS; principal; 2018-09-21)
PROC: 027034Z Dilation of Coronary Artery, One Artery with Drug-eluting Intraluminal Device, Percutaneous Approach (ICD-10-PCS; principal; 2018-09-21)
PROC: 5A09357 Assistance with Respiratory Ventilation, Less than 24 Consecutive Hours, Continuous Positive Airway Pressure (ICD-10-PCS; principal; 2018-09-21)
PROC: 5A09357 Assistance with Respiratory Ventilation, Less than 24 Consecutive Hours, Continuous Positive Airway Pressure (ICD-10-PCS; 2018-09-22)
PROC: 5A09357 Assistance with Respiratory Ventilation, Less than 24 Consecutive Hours, Continuous Positive Airway Pressure (ICD-10-PCS; 2018-09-23)
PROC: B548ZZA Ultrasonography of Superior Vena Cava, Guidance (ICD-10-PCS; 2018-09-24)
PROC: 02HV33Z Insertion of Infusion Device into Superior Vena Cava, Percutaneous Approach (ICD-10-PCS; 2018-09-24)
PROC: 5A09357 Assistance with Respiratory Ventilation, Less than 24 Consecutive Hours, Continuous Positive Airway Pressure (ICD-10-PCS; 2018-09-24)
PROC: 5A09357 Assistance with Respiratory Ventilation, Less than 24 Consecutive Hours, Continuous Positive Airway Pressure (ICD-10-PCS; 2018-09-25)
DX: I21.4 Non-ST elevation (NSTEMI) myocardial infarction (principal); I50.43 Acute on chronic combined systolic (congestive) and diastolic (congestive) heart failure; N17.0 Acute kidney failure with tubular necrosis; E87.1 Hypo-osmolality and hyponatremia; E87.3 Alkalosis; I42.9 Cardiomyopathy, unspecified; I13.0 Hypertensive heart and chronic kidney disease with heart failure and stage 1 through stage 4 chronic kidney disease, or unspecified chronic kidney disease; E78.00 Pure hypercholesterolemia, unspecified; E11.22 Type 2 diabetes mellitus with diabetic chronic kidney disease; I48.91 Unspecified atrial fibrillation; E78.5 Hyperlipidemia, unspecified; N18.3 Chronic kidney disease, stage 3 (moderate); N14.2 Nephropathy induced by unspecified drug, medicament or biological substance; E87.5 Hyperkalemia; R31.29 Other microscopic hematuria; I44.7 Left bundle-branch block, unspecified; E11.65 Type 2 diabetes mellitus with hyperglycemia; R33.9 Retention of urine, unspecified; Z83.3 Family history of diabetes mellitus; Z82.49 Family history of ischemic heart disease and other diseases of the circulatory system; Z87.891 Personal history of nicotine dependence

== ENCOUNTER 2018-10-01 05:20 | Inpatient (IN) | payer OTHER ==
[~2018-10-01] VITALS: Ht 177.8 cm; Wt 105.7 kg
[2018-10-01 05:20] VITALS: BP 147/85
[~2018-10-01 05:20] MED LIST changes: +BRILINTA90 MG PO; +COLACE 100 MG100 MG PO; +ELIQUIS5 MG PO
[2018-10-01 05:43] LABS: HEMATOCRIT 36.9 % (42.0-52.0); HEMOGLOBIN 12.2 gm/dL (14.0-18.0); MCH 28.9 pg (26.0-34.0); MCV 87.5 fL (80.0-100.0); MPV 6.9 fl. (7.2-11.1); NUCLEATED RBCS 0 /100WBC; PLATELET COUNT* 549 thou/uL (150-400); RBC 4.21 mil/uL (4.50-6.00); RDW-CV 14.8 % (10.5-14.5); WBC 14.1 thou/uL (4.0-11.0)
[2018-10-01 06:09] LABS: URINE BILIRUBIN NEGATIVE (Negative); URINE BLOOD 3+ (Negative); URINE CLARITY CLEAR; URINE COLOR YELLOW; URINE GLUCOSE-RANDOM 3+ (Negative); URINE KETONES NEGATIVE (Negative); URINE NITRITE-REFLEX NEGATIVE (Negative); URINE PROTEIN 2+ (Negative); URINE UROBILINOGEN 0.2 E.U./dl (0.2-1.0)
[2018-10-01 06:09] LABS: PROTIME 10.7 Seconds (9.20-11.50)
[2018-10-01 06:11] LABS: URINE LEUKOCYTES-REFLEX 2+ (Negative)
[2018-10-01 06:19] LABS: CALCIUM 8.4 mg/dL (8.5-10.1); CREATININE 2.4 mg/dL (0.6-1.3); POTASSIUM 4.1 mmol/L (3.5-5.1); TROPONIN-I LEVEL 0.53 ng/mL (<0.06)
[2018-10-01 06:21] LABS: BACTERIA-REFLEX >30 Many /HPF (None Seen); MUCUS 0-3 Light strn/LPF (None Seen); SQUAMOUS 0-3 Few /LPF (0-3); URINE RBC 3-10 Few /HPF (0-2); URINE WBC-REFLEX >25 Many /HPF (0-5)
[2018-10-01 06:22] LABS: CASTS None Seen /LPF (None Seen); CRYSTALS None Seen /LPF (None Seen)
[2018-10-01 06:25] LABS: ALBUMIN 2.7 g/dL (3.4-5.0); TOTAL BILIRUBIN 0.4 mg/dL (<0.1-1.0); TOTAL PROTEIN 6.6 g/dL (6.4-8.2)
[2018-10-01 06:30] LABS: ABSOLUTE EOSINOPHILS 0.1 thou/uL (0.0-0.7); ABSOLUTE LYMPHOCYTES 1.1 thou/uL (0.8-5.3); ABSOLUTE MONOCYTES 1.3 thou/uL (0.0-1.2); ABSOLUTE NEUTROPHILS 11.6 thou/uL (1.6-8.1); ANISOCYTOSIS 1+; PLATELET ESTIMATE INCREASED; POIKILOCYTOSIS 1+
--- NOTE | 2018-10-01 10:47 | EKG ---
[place] [address] ELECTROCARDIOGRAM REPORT Name: ALBARO HALE Room: [place] [address] ADM [facility]#: [id number] Admission: 10/01/18 Attend Phys: Sha Hurtado MD Discharge: Date of : 43 Report #: [id number] THIS REPORT FOR: //name// [place] [facility] Test Date: 2018-10-01 Test Time: 05:30:06 Pat Name: ALBARO HALE Department: Room: [facility] Gender: M Director Revenue: AP : 1945 Requested By: Taylor Vazquez Order Number: [id number] MD: Jack Ellis Measurements Intervals [place] Rate: 89 P: MA: QRS: 15 QRSD: 162 T: 157 QT: 402 QTc: 490 Interpretive Statements Atrial fibrillation Left bundle branch block Compared to ECG 09/22/2018 08:32:56 No significant changes Electronically Signed On 10-01-2018 10:46:58 CDT by Jack Ellis [email or web address] <ELECTRONICALLY SIGNED> By: Jack Ellis MD, [facility] 10/01/18 1046 9 Jack Ellis MD, FACC /EPI
[2018-10-01 11:49] VITALS: BP 126/77
[2018-10-01 11:51] VITALS: BP 134/71
--- NOTE | 2018-10-01 12:45 | NUR ---
PT ARRIVED TO UNIT AT APPROX 1242 VIA CART, REPORT RECVD FROM ER NURSE, MOOSE. 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 ORIENTE TO CALL LIGHT AND ROOM.
[2018-10-01 17:25] VITALS: BP 126/77
[2018-10-01 20:00] VITALS: BP 157/96
[2018-10-02] VITALS: BP 130/83
[2018-10-02 04:00] VITALS: BP 106/66
--- NOTE | 2018-10-02 04:41 | NUR ---
ASSUMED PT CARE AT APPROX 1930. PT AWAKE AND ORIENTED X4. VSS ON 2L OF O2 PER NC. POURING CRANE OPERATOR IN PLACE. RE-ASSESSMENT DONE AND CHARTED. DENIES ANY PAIN AND DISCOMFORT. KEPT ON MODERATE HIGH BACK REST. ENCOURAGED TO DEEP BREATHE. CALL LIGHT WITHIN REACH. FALL PRECAUTIONS IN PLACE. HOURLY ROUNDING DONE FOR PT SAFETY. .
[2018-10-02 04:54] LABS: ABSOLUTE EOSINOPHILS 0.1 thou/uL (0.0-0.7); ABSOLUTE LYMPHOCYTES 1.3 thou/uL (0.8-5.3); ABSOLUTE MONOCYTES 0.7 thou/uL (0.0-1.2); ABSOLUTE NEUTROPHILS 5.7 thou/uL (1.6-8.1); BASOPHILS 0.3 %; EOSINOPHILS 1.8 %; HEMOGLOBIN 10.6 gm/dL (14.0-18.0); LYMPHOCYTES 16.7 %; MCH 29.1 pg (26.0-34.0); MCHC 33.2 g/dL (28.0-37.0); MCV 87.7 fL (80.0-100.0); MONOCYTES 9.4 %; MPV 7.1 fl. (7.2-11.1); NUCLEATED RBCS 0 /100WBC; POLYS 71.8 %; RBC 3.65 mil/uL (4.50-6.00); RDW-CV 14.4 % (10.5-14.5); WBC 7.9 thou/uL (4.0-11.0)
[2018-10-02 05:06] LABS: PLATELET COUNT* 434 thou/uL (150-400)
[2018-10-02 05:23] LABS: CALCIUM 7.7 mg/dL (8.5-10.1); CREATININE 2.1 mg/dL (0.6-1.3); MAGNESIUM 1.8 mg/dL (1.8-2.4); POTASSIUM 4.1 mmol/L (3.5-5.1)
[2018-10-02 09:00] VITALS: BP 122/74
[2018-10-02 12:00] VITALS: BP 109/62
[2018-10-02 16:00] VITALS: BP 127/73
--- NOTE | 2018-10-02 17:36 | EKG ---
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 Technician: [facility] : 1945 Requested By: Robbie Beck Order Number: [id number] Velma MD: Lazaro Patiño Measurements Intervals [place] Rate: 83 P: NV: QRS: 18 QRSD: 165 T: 139 QT: 433 QTc: 509 Interpretive Statements Atrial fibrillation Left bundle-branch block Compared to ECG 10/01/2018 05:30:06 No significant changes noted Electronically Signed On 10-02-2018 17:36:49 CDT by Lazaro Patiño [email or web address] <ELECTRONICALLY SIGNED> By: Lazaro Patiño MD, [facility] 10/02/18 1736 1605 1605 Lazaro Patiño MD, FACC /EPI
--- NOTE | 2018-10-02 19:14 | NUR ---
ASSUMED PT CARE AT 0730, FULL ASSESMENT DONE CHARTED. PT A/O X4, STATES HE IS SOA, ON 3L O2, SATS 100%. ALL OTHER VSS, AFIB ON THE MONITOR. PT UP WITH 1 ASSIST/WALKER. PT USES CALL LIGHT AT TIMES, REEDUCATED SEVERAL TIMES THIS SHIFT TO USE CALL LIGHT WHEN NEEDING TO GET UP. PT VERBALIZDED UNDERSTANDING. PT FOUND TO HAVE WOUND ON COCCYX, STATES HE HAS HAD IT ON AND OFF FOR ABOUT A MONTH, PHOTO TAKEN AND BARRIOR CREAM APPLIED, PT OFFLOADED THROUGH THE SHIFT. PTS BLOOD SUGAR MONITORED, INSULIN GIVEN PER SEP. PT SLEPT MOST OF THE AFTERNOON. RESTING IN BED AT THIS TIME, WILL CONTINUE TO MONITOR.
[2018-10-02 20:00] VITALS: BP 117/59
[2018-10-03] VITALS: BP 139/77
[2018-10-03 04:00] VITALS: BP 149/86
--- NOTE | 2018-10-03 05:03 | NUR ---
ASSUMED PT CARE AT APPROX 1930. PT IS AWAKE AND ORIENTED X 4. VSS ON 3L OF O2 PER NC. DENIES ANY PAIN. 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 REMAINED RATE CONTROLLED AND ASYMPTOMATIC. TURNED TO SIDES Q2HRS. CALL LIGHT WITHIN REACH. HOURLY ROUNDING DONE FOR PT SAFETY.
[2018-10-03 08:00] VITALS: BP 123/70
[2018-10-03 13:00] VITALS: BP 142/79
--- NOTE | 2018-10-03 17:00 | NUR ---
ASSUMED PT CARE REPORT RECEIVED FROM NURSE, PT IS AOX4 AFIB ON GRIND OPERATOR. ON RA AND SATURATION IS ABOVE 95% PT OUT OF BED TO CHAIR WITH STAND BY ASSIST AND A WALKER. ROCEPHIN GIVEN LASIX GIVEN ORDERED. IV LINE PATENT . PT DENIES PAIN. WILL CONTINUE TO MONITOR PT
[2018-10-03 17:22] VITALS: BP 138/82
[2018-10-03 19:50] VITALS: BP 163/91
[2018-10-04] VITALS: BP 133/70
[2018-10-04 04:00] VITALS: BP 136/71
--- NOTE | 2018-10-04 05:14 | NUR ---
PT CARE ASSUMED AT 1930. SAT MAINTAINED IN 2L, TITRATED TO 1L NC. ALERT AND ORIENTED X4. PT HAD DIARRHEA, INFORMED PHYSICIAN, MEDICATION GIVEN PER EMAR. CALL LIGHT WITHIN REACH AND BED IN LOW POSITION. DENIES PAIN. SOB WITH EXERTION. HOURLY ROUNDING DONE FOR PT SAFETY.
[2018-10-04 08:30] VITALS: BP 149/77
--- NOTE | 2018-10-04 08:48 | NUR ---
Pt is A&O. Resides at home with his son. Pt recently dc to home on 09/30 with [facility], plan to resume HH at [facility]. Pt is normally independent. Pt received a walker at last dc, no other DME. No hx of SNF. Pt working with therapies, Pt walked 200ft with PT. Goal is home at [facility]. Following.
--- NOTE | 2018-10-04 10:54 | NUR ---
ORDER RECEIVED FOR "OT EVALUATION AND TREATMENT". ATTEMPT MADE ON 10/02 TO SEE PATIENT. PT OUT OF ROOM FOR TESTING. ENTERED PATIENTS ROOM THIS AM, AND OT INTRODUCING SELF AND ROLE. PT ADAMANTLY STATING, "I DON'T WANT ANY OF THAT ". WILL REMOVE FROM CASELOAD AT THIS TIME AND DEFER TO PHYSICAL THERAPY.
[2018-10-04 12:38] VITALS: BP 135/87
--- NOTE | 2018-10-04 13:28 | NUR ---
Nutrition: Pt assessed for pressure ulcer risk - on coccyx, healing. Admitted with SOA. RD recently saw pt, earlier this month. Pt is not ready for lifestyle change. RX: insulin, MVI. Labs: alb 2.2, prealb 17.7, BG 261. Physician indicated severe PCM - defer. Hx CHF, HTN, DM, afib. Wt: 233#. No nutrition interventions needed at this time. Mild risk.
--- NOTE | 2018-10-04 14:10 | NUR ---
WOUND NURSE: PATIENT SEEN TO ADDRESS SKIN LESION ON COCCYX. PRESENTS WITH A 1.2 X 0.5 X 0.1 CM LESION WITH PARTIAL THICKNESS TISSUE LOSS. WOUND BED CONTAINS REDDISH PINK NONGRANULATING TISSUE, NO DEBRIS OR ODOR PRESENT. PATIENT DOES REPORT TENDER TO SIT OR LAY ON. THERE IS A SCANT AMOUNT OF SEROUS DRAINAGE NOTED. CLEANSED WITH WOUND CLEANSER AND GAUZE, THEN APPLIED SKIN PREP TO INTACT PERIWOUND TISSUE, THEN COVERED WITH EXUDERM HYDROCOLLOID DRESSING (CUT TO FIT) THEN SEDCURED IN PLACE WITH SURESITE TRANSPARENT DRESSING. PROCEDURE WAS TOLERATED WELL BY THE PATIENT. INSTRUCTED ON IMPORTANCE OF SIDE TO SIDE REPOSITIONING TO PROMOTE HEALING WITH GOOD UNDERSTANDING ACHIEVED.
--- NOTE | 2018-10-04 15:52 | NUR ---
ASSUMED PT CARE AT 0700 PT IS ALERT AND ORIENTED X 4 PT DENIES PAIN OR SOA ON 1L/NC, PT IS UP WITH ASSIST X 1 WITH WALKER PT IS A FALL RISK BED AND CHAIR ALARMS ARE IN PLACE, CARDIOLOGY ORDERED MONITOR I&O, PT IS SR ON THE MONITOR, PT IS PLEASANT AND COOPERATIVE,PT IS PROGRESSING TOWARDS GOALS, WILL CONTINUE TO MONITOR
[2018-10-04 16:00] VITALS: BP 149/90
[2018-10-04 20:00] VITALS: BP 150/94
[2018-10-05] VITALS: BP 138/79
[2018-10-05 04:00] VITALS: BP 136/83
[2018-10-05 05:05] LABS: HEMATOCRIT 33.3 % (42.0-52.0); HEMOGLOBIN 10.8 gm/dL (14.0-18.0); MCH 28.6 pg (26.0-34.0); MCHC 32.3 g/dL (28.0-37.0); MCV 88.6 fL (80.0-100.0); MPV 7.1 fl. (7.2-11.1); RBC 3.76 mil/uL (4.50-6.00); RDW-CV 14.4 % (10.5-14.5); WBC 9.8 thou/uL (4.0-11.0)
--- NOTE | 2018-10-05 05:08 | NUR ---
ASSUMED PT CARE AT APPROX 1930. PT IS AWAKE AND ORIENTED X4. VSS ON 2L OF O2 PER NC. EYE CLINIC MANAGER IN PLACE TRACING AFIB. PT REMAINED RATE CONTROLLED AND ASYMPTOMATIC. DENIES ANYU PAIN NOR DISCOMFORT. Q2H TURNS DONE. RE-ASSESSMENT DONE AND CHARTED. IMMODIUM GIVEN PER MAR FOR LOOSE STOOLS. STOOLS STARTING TO BECOME MORE FORMED. CALL LIGHT WITHIN REACH. HOURLY ROUNDING DONE FOR PT SAFETY.
[2018-10-05 05:27] LABS: CALCIUM 7.9 mg/dL (8.5-10.1); CREATININE 1.6 mg/dL (0.6-1.3); MAGNESIUM 1.8 mg/dL (1.8-2.4); POTASSIUM 3.8 mmol/L (3.5-5.1)
[2018-10-05 09:40] VITALS: BP 125/69
--- NOTE | 2018-10-05 10:00 | NUR ---
ASSUMED CARE OF PATIENT, NO COMPLAINTS OF PAIN, NAUSEA OR SHORTNESS OF BREATH AT THIS TIME. ASSESSMENT CHARTED. ALL QUESTIONS ANSWERED. EDUCATED ON PLAN OF CARE FOR THE DAY. BED IN LOWEST POSITION, CALL LIGHT IN REACH,
[2018-10-05 12:48] VITALS: BP 120/63
[2018-10-05 17:39] VITALS: BP 144/90
--- NOTE | 2018-10-05 18:14 | NUR ---
PATIENT PROGRESSED WELL TOWARDS GOALS THIS SHIFT. DID GET A LITTLE SHORT OF AIR DURING EXERCISE TODAY BUT RECOVERED FROM IT WELL. HAD A ONETIME DOSE OF LASIX TODAY, SEE MAR. BLOOD PRESSURE MAINTAINED AFTER DOSE. SWELLING REDUCING IN LOWER EXTREMITIES. ALL QUESTIONS ANSWERED. NO PAIN, NAUSEA AT THIS TIME. REMAINS ON 2 LITERS ON AND OFF THROUGHOUT SHIFT. BED IN LOWEST POSITON, CALL LIGHT IN REACH.
[2018-10-06] VITALS (7 sets, daily range): BP systolic 114–145; BP diastolic 59–80
[2018-10-06 05:27] LABS: HEMATOCRIT 32.8 % (42.0-52.0); HEMOGLOBIN 10.7 gm/dL (14.0-18.0); MCH 28.5 pg (26.0-34.0); MCHC 32.5 g/dL (28.0-37.0); MCV 87.6 fL (80.0-100.0); MPV 7.1 fl. (7.2-11.1); RBC 3.74 mil/uL (4.50-6.00); RDW-CV 14.8 % (10.5-14.5); WBC 10.1 thou/uL (4.0-11.0)
--- NOTE | 2018-10-06 05:56 | NUR ---
RECEIVED REPORT AND ASSUMED CARE AT 1900. VSS. CARDIAC MONITORING IN PLACE. PT DENIES COMPLAINTS OF PAIN. ASSESSMENT COMPLETED CHARTED. PT UP AD VICKI WITH WALKER, 2L NC PRN. BED LOCKED IN LOWEST POSITION, CALL LIGHT WITHIN REACH. PATIENT CHANGES POSITIONS THROUGH NIGHT TO OFF LOAD AND FOR COMFORT. HOURLY ROUNDING COMPLETED AND ALL NEEDS MET.
[2018-10-06 05:59] LABS: CALCIUM 8.5 mg/dL (8.5-10.1); CREATININE 1.5 mg/dL (0.6-1.3); MAGNESIUM 1.8 mg/dL (1.8-2.4); POTASSIUM 4.3 mmol/L (3.5-5.1)
[2018-10-07 04:00] VITALS: BP 110/70
[2018-10-07 05:27] LABS: ALBUMIN 2.4 g/dL (3.4-5.0); CALCIUM 8.6 mg/dL (8.5-10.1); CREATININE 1.5 mg/dL (0.6-1.3); PHOSPHORUS* 3.7 mg/dL (2.5-4.9); POTASSIUM 4.7 mmol/L (3.5-5.1)
--- NOTE | 2018-10-07 06:21 | NUR ---
VITALS WNL. SEE MAR. SEE CHARTING. FALL PRECAUTIONS IN PLACE. HOURLY ROUNDING FOR SAFETY.
[2018-10-07 07:30] VITALS: BP 119/70
[2018-10-07] MEDS ORDERED: LASIX 40 MG TAB40 M2 PO (10:50)
[2018-10-07] MEDS ORDERED: KLOR-CON 1010 MEQ PO (10:50)
[2018-10-07] MEDS ORDERED: AMPICILLIN TRI500 MG PO (10:50)
--- NOTE | 2018-10-07 11:28 | NUR ---
Pt discharging to home today with HH, faxed orders to [facility] per Pt's request.
[2018-10-07 12:35] VITALS: BP 144/82
--- NOTE | 2018-10-11 09:43 | CON ---
[address] [address] CONSULTATION Name: ALEXIAALBARO Stanislav Room: [address] IN .R.#: [id number] Admission: 10/01/18 Attend Phys: Sha Hurtado MD Discharge: 10/07/18 Date of : 43 Report #: [id number] THIS REPORT FOR: //name// CC: Sha Hwange [facility] DATE OF SERVICE: 10/07/2018 ATTENDING PHYSICIAN: Thom Ambrosio MD. REASON FOR CONSULTATION: Group B Streptococcus in urine culture. Left pulmonary infiltrates. Question antibiotic management. HISTORY OF PRESENT ILLNESS: The patient is a 73-year-old white man with multiple medical problems, admitted through the Emergency Room on 10/01/2018 with a history of increasing shortness of breath. The patient is known to have congestive heart failure secondary to coronary artery disease, chronic atrial fibrillation, chronic kidney disease, fluid retention. During hospitalization, the patient is found to have group B Streptococcus in urine. He is also found to have left basilar pulmonary infiltrates that have worsened of lately. The patient and the patient's nurse are under the believe the patient is being discharged today. The patient has received treatment with Rocephin and vancomycin. Those were discontinued yesterday by Dr. Ambrosio. The patient denies having pain. No nausea, vomiting. Dyspnea appears to have improved. He obviously has swelling of lower extremities. PAST MEDICAL HISTORY: Hypertension. Diabetes mellitus type 2. Dyslipidemia. Chronic congestive heart failure. Anemia of chronic disease. Anticoagulation with liquids. SOCIAL HISTORY: since 06/2018. Lives with son. Retired. REVIEW OF SYSTEMS: Dyspnea appears to have improved, though swelling of lower extremities persists. The patient states he had no urinary symptoms whatsoever and he is voiding with no difficulty. He is improved compared to admission. We discussed about his left-sided pleural effusion, infiltrate that had worsened up lately. He is aware of that. DRUG ALLERGIES: None listed. MEDICATIONS: The patient is currently off antibiotic. He has been receiving Rocephin 1 gram IV daily and has received vancomycin single dose per pharmacy yesterday. He is on treatment with furosemide 80 mg IV daily, KCl 20 mEq b.i.d., loperamide 2 mg q.6h. p.r.n., tamsulosin 0.4 mg at bedtime, insulin glargine as directed at bedtime, insulin lispro per sliding scale, glimepiride 4 mg b.i.d. by mouth, docusate 100 mg p.o. b.i.d., ticagrelor 90 mg p.o. b.i.d., [place] [address] CONSULTATION Name: ALBARO HALE Room: [address]#: [id number] Admission: 10/01/18 Attend Phys: Sha Hurtado MD Discharge: 10/07/18 Date of : 43 Report #: [id number] apixaban 2.5 mg p.o. b.i.d., atorvastatin 40 mg p.o. daily, carvedilol 25 mg p.o. b.i.d., multivitamin with minerals daily, p.r.n. glucose, p.r.n. glucagon. REVIEW OF SYSTEMS: As above. PHYSICAL EXAMINATION: GENERAL: Overweight man, afebrile since admission, presenting no fever. VITAL SIGNS: Temperature 98.3, pulse 90, respirations 16, BP 119/70, height 5 feet 10 inches. Weight on admission 239 pounds and on 10/05/2018 is 235 pounds. HEENMT: Head normocephalic, atraumatic. Pupils reactive. Mouth: No thrush, good oral hygiene dentition. NECK: Supple. LUNGS: Decreased to absent breath sounds, left base anterior and posteriorly. HEART: Irregularly irregular. No gallops. No murmurs. ABDOMEN: Obese, soft, no masses or megaly. GENITALIA AND RECTAL: Deferred. EXTREMITIES: Reveal 3+ pitting bilateral pretibial edema. NEUROLOGIC: Grossly within normal limits. LABORATORY DATA: Revealed normal sodium, potassium, CO2 elevated at 33, BUN 33, creatinine 1.5, glucose 122-322 mg/dL. Albumin 2.4 g/dL. NT-proBNP significantly elevated. White blood cell count on admission was as high as 14,100 and on 10/06/2018, white blood cell count is 10,100, hemoglobin 10.7 g/dL, platelets 405,000. No white blood cell count differential obtained in the last few days. The urinalysis on admission reveals specific gravity 1.020, pH 6, 2+ protein, 3+ glucose, 3+ blood. The microscopic exam revealed pyuria, microscopic hematuria and bacteriuria. MICROBIOLOGY DATA: Blood cultures obtained on 09/23/2018 and 10/01/2018 revealed group B Streptococcus. This organism usually sensitive to penicillin and amoxicillin. RADIOLOGY EVALUATION: A chest x-ray revealed worsening left basilar infiltrate, effusion and some right-sided atelectasis. Venous ultrasound 08/2017 revealed no DVTs. Electrocardiogram on 10/01/2018 revealed atrial fibrillation, left bundle branch block and no significant changes compared to previously. An echocardiogram on 09/20/2018 revealed left ventricle of normal size with moderate diffuse hypokinesis. Concentric left ventricular hypertrophy, dilated right ventricle, dilated left atrium, aortic sclerosis and mitral sclerosis calcification. ASSESSMENT: 1. Left basilar pulmonary infiltrate - effusion, question etiology - worse. 2. Group B Streptococcus asymptomatic bacteriuria. 3. Chronic congestive heart failure - atrial fibrillation. 4. [place] [address] CONSULTATION Name: ALBARO HALE Room: [address]#: [id number] Admission: 10/01/18 Attend Phys: Sha Hurtado MD Discharge: 10/07/18 Date of : 43 Report #: [id number] 5. Diabetes mellitus. 6. Hypertension. SUGGESTION: Currently, the patient does not appear to be toxic or infected looking. I suspect even though the urinalysis was abnormal, the group B Streptococcus may have represented asymptomatic bacteriuria. Anyhow, the patient had been treated with Rocephin. Should we consider antibiotic needed by this patient, amoxicillin 500 mg p.o. b.i.d. or t.i.d. for a total of 5-7 more days should suffice. The main question is what to do about the worsening chest x-ray with left-sided infiltrate, effusion. We may continue observation. We may consider tapping if the fluid is considered to be significant enough to be tapped. I will discuss these findings and recommendations with Dr. Ambrosio and put our heads together to make a final recommendation regarding the patient's care. Dr. Ambrosio, thank you for requesting my suggestion. <ELECTRONICALLY SIGNED> By: Glenn Anguiano MD 10/11/18 0943 0922 1954Glenn Anguiano MD /nt
== END 2018-10-07 14:05 | disposition home health service (06) | DRG 871 ==
LOC: M.ERS 05:20 → M.2W 06:34 → M.TBA-ER 06:34 → M.2W 12:19
PROVIDERS: Emergency Medicine; Family Medicine; ADMIT Internal Medicine
DX: A41.9 Sepsis, unspecified organism (principal); N17.0 Acute kidney failure with tubular necrosis; I50.43 Acute on chronic combined systolic (congestive) and diastolic (congestive) heart failure; J96.01 Acute respiratory failure with hypoxia; E43 Unspecified severe protein-calorie malnutrition; J18.9 Pneumonia, unspecified organism; N39.0 Urinary tract infection, site not specified; I42.9 Cardiomyopathy, unspecified; I13.0 Hypertensive heart and chronic kidney disease with heart failure and stage 1 through stage 4 chronic kidney disease, or unspecified chronic kidney disease; E78.5 Hyperlipidemia, unspecified; E78.00 Pure hypercholesterolemia, unspecified; I25.10 Atherosclerotic heart disease of native coronary artery without angina pectoris; E11.22 Type 2 diabetes mellitus with diabetic chronic kidney disease; N18.3 Chronic kidney disease, stage 3 (moderate); B95.1 Streptococcus, group B, as the cause of diseases classified elsewhere; N40.0 Benign prostatic hyperplasia without lower urinary tract symptoms; Z95.5 Presence of coronary angioplasty implant and graft; Z87.891 Personal history of nicotine dependence; Z83.3 Family history of diabetes mellitus; Z82.49 Family history of ischemic heart disease and other diseases of the circulatory system; Z68.33 Body mass index [BMI] 33.0-33.9, adult; Z79.899 Other long term (current) drug therapy

== ENCOUNTER → 2018-10-13 | Outpatient (CLI) | payer OTHER ==
[~2018-10-13] MED LIST changes: +AMPICILLIN TRI500 MG PO; +KLOR-CON 1010 MEQ PO
[2018-10-13 12:15] LABS: CALCIUM 9.1 mg/dL (8.5-10.1); CREATININE 1.7 mg/dL (0.6-1.3); POTASSIUM 4.3 mmol/L (3.5-5.1)
== END ==
LOC: M.LAB 11:42
PROVIDERS: Registered Nurse
DX: I42.0 Dilated cardiomyopathy (principal); N28.9 Disorder of kidney and ureter, unspecified

== ENCOUNTER 2018-10-27 20:19 | Inpatient (IN) | payer OTHER ==
[~2018-10-27] VITALS: Ht 152.4 cm; Wt 105.2 kg
[2018-10-27 20:31] VITALS: BP 147/114
[2018-10-27 20:36] LABS: ABSOLUTE LYMPHOCYTES 0.9 thou/uL (0.8-5.3); ABSOLUTE MONOCYTES 0.5 thou/uL (0.0-1.2); ABSOLUTE NEUTROPHILS 5.1 thou/uL (1.6-8.1); BASOPHILS 0.2 %; EOSINOPHILS 0.2 %; HEMATOCRIT 36.3 % (42.0-52.0); LYMPHOCYTES 13.6 %; MCH 28.5 pg (26.0-34.0); MCV 86.3 fL (80.0-100.0); MONOCYTES 8.3 %; MPV 6.9 fl. (7.2-11.1); NUCLEATED RBCS 0 /100WBC; PLATELET COUNT* 429 thou/uL (150-400); POLYS 77.7 %; RDW-CV 15.1 % (10.5-14.5); WBC 6.5 thou/uL (4.0-11.0)
[2018-10-27 20:47] LABS: APTT 27.2 Seconds (25.0-31.3); INR 1.1; PROTIME 11.6 Seconds (9.20-11.50)
[2018-10-27 20:57] LABS: ALKALINE PHOSPHATASE 110 U/L (46-116); ANION GAP 9 mmol/L (7-16); BUN 32 mg/dL (7-18); CALCIUM 9.2 mg/dL (8.5-10.1); CHLORIDE 99 mmol/L (98-107); CK-MB MASS 0.8 ng/mL (<0.5-3.6); CO2 28 mmol/L (21-32); CREATININE 1.7 mg/dL (0.6-1.3); GLUCOSE 289 mg/dL (70-99); LIPASE 132 U/L (73-393); MAGNESIUM 1.9 mg/dL (1.8-2.4); NT-PRO BRAIN NAT PEPTIDE 16412 pg/mL (<300); POTASSIUM 4.4 mmol/L (3.5-5.1); SGOT 16 U/L (15-37); SGPT 21 U/L (30-65); SODIUM 136 mmol/L (136-145); TOTAL BILIRUBIN 0.7 mg/dL (<0.1-1.0); TOTAL PROTEIN 7.4 g/dL (6.4-8.2); TROPONIN-I LEVEL <0.06 ng/mL (<0.06)
[2018-10-27 22:00] VITALS: BP 138/96
[2018-10-27 22:21] VITALS: BP 140/89
[2018-10-28 04:00] VITALS: BP 149/101
[2018-10-28 08:07] VITALS: BP 163/99
[2018-10-28 11:23] VITALS: BP 135/77
[2018-10-28 14:04] LABS: ALBUMIN 2.9 g/dL (3.4-5.0); CALCIUM 8.9 mg/dL (8.5-10.1); CREATININE 2.2 mg/dL (0.6-1.3); TOTAL BILIRUBIN 0.6 mg/dL (<0.1-1.0); TOTAL PROTEIN 7.2 g/dL (6.4-8.2)
[2018-10-28 14:05] LABS: POTASSIUM 5.4 mmol/L (3.5-5.1)
[2018-10-28 15:57] VITALS: BP 139/98
--- NOTE | 2018-10-28 18:21 | EKG ---
[place] [address] ELECTROCARDIOGRAM REPORT Name: ALBARO HALE Room: [address] ADM IN M.R.#: [id number] Admission: 10/27/18 Attend Phys: Christi Alberto MD Discharge: Date of : 43 Report #: [id number] THIS REPORT FOR: //name// 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 Operator: Jesus REDD : 1945 Requested By: Dyllan Summers Order Number: [id number] MD: Lazaro Patiño Measurements Intervals [place] Rate: 103 P: [place]: QRS: 77 QRSD: 151 T: 232 QT: 363 QTc: 475 Interpretive Statements Atrial fibrillation Left bundle-branch block Baseline wander in lead(s) I Compared to ECG 10/01/2018 16:05:36 No significant changes Electronically Signed On 10-28-2018 18:21:17 CDT by Lazaro Patiño [email or web address] <ELECTRONICALLY SIGNED> By: Lazaro Patiño MD, FAC 10/28/18 1821 24 24 Lazaro Patiño MD, [facility] /EPI
[2018-10-28 19:20] VITALS: BP 132/92
[2018-10-29 00:04] VITALS: BP 127/80
[2018-10-29 04:00] VITALS: BP 131/72
[2018-10-29 07:53] VITALS: BP 131/93
[2018-10-29 11:47] LABS: CALCIUM 8.3 mg/dL (8.5-10.1); MAGNESIUM 1.9 mg/dL (1.8-2.4)
[2018-10-29 11:48] LABS: CREATININE 3.2 mg/dL (0.6-1.3)
[2018-10-29 12:09] VITALS: BP 120/88
--- NOTE | 2018-10-29 12:23 | EKG ---
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
[2018-10-29 16:00] VITALS: BP 113/71
[2018-10-29 20:00] VITALS: BP 128/71
[2018-10-29 23:07] LABS: GLYCOHEMOGLOBIN (HGB A1C) 12.2 % (4.8-5.6)
[2018-10-30] VITALS (19 sets, daily range): BP systolic 115–141; BP diastolic 62–92
[2018-10-30 09:01] LABS: CALCIUM 8.4 mg/dL (8.5-10.1); CREATININE 4.1 mg/dL (0.6-1.3); POTASSIUM 5.9 mmol/L (3.5-5.1)
--- NOTE | 2018-10-30 10:49 | EKG ---
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
[2018-10-30 11:56] LABS: URINE BILIRUBIN NEGATIVE (Negative); URINE BLOOD TRACE (Negative); URINE CLARITY SL CLOUDY; URINE COLOR YELLOW; URINE GLUCOSE-RANDOM 1+ (Negative); URINE KETONES NEGATIVE (Negative); URINE LEUKOCYTES-REFLEX NEGATIVE (Negative); URINE NITRITE-REFLEX NEGATIVE (Negative); URINE PROTEIN 3+ (Negative); URINE SPECIFIC GRAVITY 1.025 (1.005-1.030); URINE UROBILINOGEN 0.2 E.U./dl (0.2-1.0)
[2018-10-30 12:03] LABS: SQUAMOUS NONE SEEN /LPF (0-3)
[2018-10-30 12:04] LABS: AMORPHOUS URATES Moderate /LPF (None Seen); CRYSTALS None Seen /LPF (None Seen); HYALINE CASTS 0-3 Few /LPF (None Seen); MUCUS None Seen strn/LPF (None Seen); URINE RBC 0-2 Rare /HPF (0-2); URINE WBC-REFLEX 0-5 Rare /HPF (0-5)
[2018-10-30 12:36] LABS: CALCIUM 8.4 mg/dL (8.5-10.1); CREATININE 4.5 mg/dL (0.6-1.3); POTASSIUM 5.8 mmol/L (3.5-5.1)
[2018-10-30 15:00] LABS: CALCIUM 7.9 mg/dL (8.5-10.1); CREATININE 4.3 mg/dL (0.6-1.3); POTASSIUM 5.9 mmol/L (3.5-5.1)
[2018-10-31] VITALS (46 sets, daily range): BP systolic 111–148; BP diastolic 61–97
[2018-10-31 04:41] LABS: CALCIUM 8.6 mg/dL (8.5-10.1); CREATININE 4.3 mg/dL (0.6-1.3); HEMATOCRIT 35.2 % (42.0-52.0); HEMOGLOBIN 11.4 gm/dL (14.0-18.0); MCH 27.8 pg (26.0-34.0); MCHC 32.2 g/dL (28.0-37.0); MCV 86.3 fL (80.0-100.0); MPV 7.7 fl. (7.2-11.1); NUCLEATED RBCS 0 /100WBC; PLATELET COUNT* 329 thou/uL (150-400); POTASSIUM 5.4 mmol/L (3.5-5.1); RBC 4.08 mil/uL (4.50-6.00); RDW-CV 15.2 % (10.5-14.5); WBC 12.4 thou/uL (4.0-11.0)
[2018-10-31 06:48] LABS: ABSOLUTE MONOCYTES 0.9 thou/uL (0.0-1.2); ABSOLUTE NEUTROPHILS 10.5 thou/uL (1.6-8.1); ATYPICAL LYMPHS 4 %; PLATELET ESTIMATE ADEQUATE
--- NOTE | 2018-10-31 07:04 | OP ---
[address] [address] OPERATIVE REPORT Name: ALBARO HALE Room: [address] IN M.R.#: [id number] Admission: 10/27/18 Attend Phys: Christi Alberto MD Discharge: Date of : 43 Report #: [id number] THIS REPORT FOR: //name// CC: Christi Caputo DATE OF SERVICE: 10/30/2018 PREOPERATIVE DIAGNOSIS: Acute kidney injury. POSTOPERATIVE DIAGNOSIS: Acute kidney injury. PROCEDURE: 1. Ultrasound-guided access to the right internal jugular vein. 2. Temporary dialysis catheter placement. SURGEON: Nitin Walker DO. TRIMMING PRESS OPERATOR: None. ANESTHESIA: Local. ESTIMATED BLOOD LOSS: 25 mL. FLUIDS: None. SPECIMENS: None. COMPLICATIONS: None. IMPLANTS: A 20 cm temporary dialysis catheter in the right IJ. FINDINGS: Right IJ was soft and compressible, suitable for access. The catheter aspirated and flushed well without issue. CLINICAL HISTORY: The patient is a 73-year-old man with acute kidney injury. He has worsening renal function, fluid retention with dyspnea and hyperkalemia, in need of urgent dialysis. DETAILS OF PROCEDURE: After informed consent was obtained, the patient was placed in supine position in his hospital bed. The right neck was prepped and draped in usual sterile fashion. Timeout was performed identifying correct patient and procedure. Using ultrasound guidance, the right internal jugular vein was identified, was accessed with an 18 gauge needle preserving and the ultrasound images. Using [address] [address] OPERATIVE REPORT Name: ALBARO HALE Room: [address] ADM IN M.R.#: [id number] Admission: 10/27/18 Attend Phys: Christi Alberto MD Discharge: Date of : 43 Report #: [id number] Seldinger technique, a wire was passed. A small skin incision was made in the right neck. The dilator was passed over the wire and the tract was dilated. Catheter was then positioned over the wire and the wire was removed. The catheter was then aspirated and flushed easily without resistance. The catheter was then secured to the neck with the StatLock. Sterile dressing was applied. All counts reported as correct. He tolerated the procedure well. The catheter may be used immediately for dialysis needs. <ELECTRONICALLY SIGNED> By: Nitin Walker DO 10/31/18 0704 1659 1925Aronnie Walker DO /nt
[2018-10-31 15:15] LABS: BE -2.9 mmol/L (-2 to +3); PCO2 41.2 mmHg (35.0-45.0); pH 7.354 (7.340-7.450)
[2018-10-31 15:19] LABS: PO2 128.9 mmHg (75.0-100.0)
[2018-10-31 18:51] LABS: CALCIUM 8.2 mg/dL (8.5-10.1); CREATININE 3.7 mg/dL (0.6-1.3); POTASSIUM 4.7 mmol/L (3.5-5.1)
[2018-11-01] VITALS (45 sets, daily range): BP systolic 105–153; BP diastolic 61–103
[2018-11-01 05:47] LABS: CALCIUM 8.1 mg/dL (8.5-10.1); CREATININE 4.3 mg/dL (0.6-1.3); POTASSIUM 4.5 mmol/L (3.5-5.1)
--- NOTE | 2018-11-01 13:46 | EKG ---
[place] [address] ELECTROCARDIOGRAM REPORT Name: ALBARO HALE Room: [address] ADM IN M.R.#: [id number] Admission: 10/27/18 Attend Phys: Christi Alberto MD Discharge: Date of : 43 Report #: [id number] THIS REPORT FOR: //name// [facility] Test Date: 2018-11-01 Test Time: 11:43:55 Pat Name: ALBARO HALE Department: Room: [address] Gender: M Sr Risk Management Consultant: [facility] : 1945 Requested By: Brani Herring Order Number: [id number] Velma DYKES: Cristóbal Akers Measurements Intervals [place] Rate: 101 P: [place]: QRS: 90 QRSD: 157 T: -88 QT: 402 QTc: 522 Interpretive Statements Atrial fibrillation LBBB ST-T abnormalities associated with LBBB Prolonged QT interval Compared to ECG 10/30/2018 10:06 Prolonged QT interval now present Electronically Signed On 11-01-2018 13:46:11 CDT by Cristóbal Akers [email or web address] <ELECTRONICALLY SIGNED> By: Cristóbal Akers MD, [facility] 11/01/18 1346 1143 1143 Cristóbal Akers MD, [facility] /EPI
[2018-11-02] VITALS (20 sets, daily range): BP systolic 101–148; BP diastolic 64–104
[2018-11-02 06:09] LABS: CALCIUM 7.9 mg/dL (8.5-10.1); CREATININE 3.5 mg/dL (0.6-1.3); POTASSIUM 4.5 mmol/L (3.5-5.1)
[2018-11-02 10:34] LABS: ABSOLUTE LYMPHOCYTES 0.8 thou/uL (0.8-5.3); ABSOLUTE MONOCYTES 0.7 thou/uL (0.0-1.2); ABSOLUTE NEUTROPHILS 10.6 thou/uL (1.6-8.1); BASOPHILS 0.3 %; HEMATOCRIT 34.4 % (42.0-52.0); HEMOGLOBIN 11.3 gm/dL (14.0-18.0); LYMPHOCYTES 6.5 %; MCH 28.3 pg (26.0-34.0); MCHC 32.7 g/dL (28.0-37.0); MCV 86.5 fL (80.0-100.0); MONOCYTES 6.1 %; MPV 7.4 fl. (7.2-11.1); NUCLEATED RBCS 0 /100WBC; PLATELET COUNT* 145 thou/uL (150-400); POLYS 87.1 %; RBC 3.98 mil/uL (4.50-6.00); RDW-CV 15.7 % (10.5-14.5); WBC 12.2 thou/uL (4.0-11.0)
[2018-11-02 10:58] LABS: ALBUMIN 2.6 g/dL (3.4-5.0); CALCIUM 8.1 mg/dL (8.5-10.1); CREATININE 3.8 mg/dL (0.6-1.3); POTASSIUM 4.3 mmol/L (3.5-5.1); TOTAL BILIRUBIN 0.4 mg/dL (<0.1-1.0); TOTAL PROTEIN 6.4 g/dL (6.4-8.2)
[2018-11-03] VITALS (18 sets, daily range): BP systolic 80–132; BP diastolic 18–93
[2018-11-03 06:04] LABS: CALCIUM 8.1 mg/dL (8.5-10.1); CREATININE 3.6 mg/dL (0.6-1.3); POTASSIUM 4.1 mmol/L (3.5-5.1)
--- NOTE | 2018-11-03 09:05 | CON ---
[address] [address] CONSULTATION Name: ALBARO HALE Room: [address] IN M.R.#: [id number] Admission: 10/27/18 Attend Phys: Christi Alberto MD Discharge: Date of : 43 Report #: [id number] THIS REPORT FOR: //name// CC: Christi Caputo DATE OF SERVICE: 10/30/2018 ATTENDING PHYSICIAN: Dr. Herring. REASON FOR NEPHROLOGY CONSULTATION: Severe acute kidney injury on chronic kidney disease, stage 3. REASON FOR ADMISSION: Shortness of breath and abdominal pain. HISTORY OF PRESENT ILLNESS: This is a 73-year-old male with past medical history of coronary artery disease, recent 2 stents placement on 10/05/2018; type 2 diabetes; hypertension; chronic kidney disease stage 3, baseline creatinine 1.7-1.8 but recent contrast-induced nephropathy in September, needing dialysis, couple of sessions, recovery after that, came into the ER with shortness of breath and he was having some right upper quadrant pain and this was on 10/27/2018. He had a CTA done, which showed bilateral pleural effusions and evidence of pulmonary vascular congestion and he was started on diuretics at that point. Creatinine was 1.7 and it went up to 2.2 the next day and 3.2 yesterday, which was 48 hours after contrast and then 4.1 this morning and 4.5 this afternoon. Acosta catheter was placed today, 350 mL came out right away and since then another 200 mL has been coming out, so he is nonoliguric. He has some difficulty breathing, but this is stable. He is on 3 liters of oxygen by nasal cannula. His potassium went up to 5.9 this morning. The patient was getting potassium replacement with Lasix as well, which has been all stopped now. He did get IV fluids overnight too. His right upper quadrant imaging showed gallbladder sludge, possible gallbladder wall edema, surgery is not planning any acute intervention for this at this point. His ejection fraction is 35-40% as per the echocardiogram, which was done on 09/21/2018 with moderate concentric LVH, dilated IVC and moderate diffuse hypokinesia of left ventricular motion, but he had stent placement after that. ALLERGIES: No known allergies. REVIEW OF SYSTEMS: He is also having some nausea and some shortness of breath. Otherwise, 10-point review of systems is negative. HOME MEDICATIONS: Include Lasix 40 mg once a day, ampicillin, potassium chloride, ticagrelor, docusate, apixaban, insulin glargine, multivitamin, glimepiride, carvedilol, acetaminophen, [place] [address] CONSULTATION Name: ALBARO HALE Room: [address] IN M.R.#: [id number] Admission: 10/27/18 Attend Phys: Christi Alberto MD Discharge: Date of : 43 Report #: [id number] PAST MEDICAL AND SURGICAL HISTORY: Hypertension; diabetes; stent placement, 2 coronary artery stents in September; dyslipidemia; chronic kidney disease stage 3, baseline creatinine 1.7-1.8; acute kidney injury requiring hemodialysis, 2 sessions and this was in early 09/2018. FAMILY HISTORY: Diabetes and hypertension. SOCIAL HISTORY: Lives at home and he is a former smoker. Does not take alcohol use or illicit drugs. PHYSICAL EXAMINATION: VITAL SIGNS: Blood pressure is 138/83, temperature 36.8 and pulse rate is 92, and respiratory rate is 18 and pulse ox is 95% on 3 liters of oxygen via nasal cannula. GENERAL: He is awake, alert and oriented x 3. HEAD, EYES, EARS, NOSE AND THROAT: Mucous membranes are moist. NECK: There is no JVD. CHEST: Bilateral diminished breath sounds. No crackles heard. CARDIOVASCULAR: S1, S2 normal. Distant heart sounds. ABDOMEN: Soft, nontender, nondistended. Bowel sounds present. EXTREMITIES: There is 2+ lower extremity edema. NEUROLOGIC: Gross neurologic function is intact. PSYCHIATRIC: Mood and affect seem to be normal. GENITOURINARY: There is no CVA tenderness. There is Acosta catheter in place. LABORATORY DATA: Hemoglobin is 12.0. Sodium is 126, potassium is 5.8, BUN is 80, creatinine is 4.5, calcium is 8.4 and other labs are reviewed. IMAGING: Renal ultrasound, chest x-ray findings were reviewed. ASSESSMENT: 1. Acute kidney injury, contrast-induced nephropathy and diuresis related on top of chronic kidney disease stage 3 and history of dialysis requiring acute kidney injury. Baseline creatinine is 1.7-1.8. He is diabetic and hypertensive nephropathy. The patient received contrast on 10/27/2018. UA shows evidence of 3+ protein, but no blood. No evidence of renal hydronephrosis on a renal ultrasound. Creatinine 4.5 and BUN is 80. Creatinine was 1.7 on admission. 2. Hyponatremia in the setting of impaired free water clearance and renal insufficiency. 3. Hyperglycemia is also contributing to hyponatremia. 4. Hyperkalemia in the setting of potassium supplementation and acute renal insufficiency. 5. Shortness of breath, pleural effusions and pulmonary vascular congestion based on the CT. 6. Diabetes type 2. Primary is managing. 7. Hypertension, currently controlled. [facility] [address] [address] CONSULTATION Name: ALBARO HALE Room: [address] ADM IN M.R.#: [id number] Admission: 10/27/18 Attend Phys: Christi Alberto MD Discharge: Date of : 43 Report #: [id number] 8. Right upper quadrant tenderness and gallbladder sludge. Surgery is following. PLAN: 1. Started him on gentle hydration, normal saline at 50 mL an hour, he has a Acosta catheter and he is making some urine. 2. Chances of needing dialysis are quite high since he is having some nausea, which could be uremia and his potassium when last checked was 5.8. 3. We will monitor him and recheck labs this afternoon and if there is any acute indication for dialysis, we will dialyze him tonight. Otherwise, we will keep following him for any developing need for dialysis. The patient is agreeable to dialysis if need arises. 4. Keep his MAP around 70. Keep diuretics on hold for now and nephrotoxic agents on hold for now. 5. Try to avoid contrast exposures in this patient as much as possible in the future. Thank you for the consultation. More than 35 minutes spent in critical care and care was discussed with the patient, the patient's primary team as well as the patient's nurse. <ELECTRONICALLY SIGNED> By: Zara Majano MD 11/03/18 0905 1418 [id number] claudio Doherty
[2018-11-04 00:33] VITALS: BP 121/83
[2018-11-04 04:13] VITALS: BP 149/80
[2018-11-04 08:30] VITALS: BP 129/77
[2018-11-04 09:10] LABS: CALCIUM 7.9 mg/dL (8.5-10.1); CREATININE 3.4 mg/dL (0.6-1.3); POTASSIUM 4.1 mmol/L (3.5-5.1)
[2018-11-04 12:18] VITALS: BP 103/66
[2018-11-04 16:38] VITALS: BP 144/82
[2018-11-04 20:00] VITALS: BP 125/100
[2018-11-05] VITALS: BP 145/83
[2018-11-05 05:30] LABS: CALCIUM 7.7 mg/dL (8.5-10.1); CREATININE 3.2 mg/dL (0.6-1.3); MAGNESIUM 1.9 mg/dL (1.8-2.4); POTASSIUM 4.3 mmol/L (3.5-5.1)
[2018-11-05 06:00] VITALS: BP 143/81
[2018-11-05 08:00] VITALS: BP 130/91
[2018-11-05 12:29] VITALS: BP 121/65
[2018-11-05 15:40] VITALS: BP 146/92
[2018-11-06 01:05] VITALS: BP 121/78
[2018-11-06 04:34] VITALS: BP 133/73
[2018-11-06 05:55] LABS: ALBUMIN 2.2 g/dL (3.4-5.0); CALCIUM 7.6 mg/dL (8.5-10.1); CREATININE 2.6 mg/dL (0.6-1.3); MAGNESIUM 1.7 mg/dL (1.8-2.4); POTASSIUM 4.2 mmol/L (3.5-5.1); TOTAL BILIRUBIN 0.5 mg/dL (<0.1-1.0)
[2018-11-06 12:01] VITALS: BP 122/65
[2018-11-06 15:56] VITALS: BP 130/68
[2018-11-06 19:30] VITALS: BP 132/76
[2018-11-07 00:12] VITALS: BP 113/64
[2018-11-07 04:00] VITALS: BP 130/72
[2018-11-07 05:08] LABS: CALCIUM 7.7 mg/dL (8.5-10.1); CREATININE 2.6 mg/dL (0.6-1.3); POTASSIUM 4.3 mmol/L (3.5-5.1)
[2018-11-07] MEDS ORDERED: HUMALOG100 UNIT/1 SUBQ (09:56)
[2018-11-07] MEDS ORDERED: VENTOLIN HFA 1818 GM INH (10:00)
[2018-11-07] MEDS ORDERED: ADVAIR HFA 230M12 GM INH (10:00)
[2018-11-07 11:58] VITALS: BP 142/86
[2018-11-07 15:25] VITALS: BP 154/70
[2018-11-07 20:00] VITALS: BP 120/78
[2018-11-08] VITALS: BP 130/78
[2018-11-08 03:57] VITALS: BP 130/88
[2018-11-08 08:01] VITALS: BP 132/80
[2018-11-08 12:17] VITALS: BP 131/64
[2018-11-08 16:32] VITALS: BP 145/70
[2018-11-08 20:00] VITALS: BP 135/77
[2018-11-09] VITALS: BP 128/74
[2018-11-09 03:51] VITALS: BP 140/82
[2018-11-09 04:58] LABS: HEMATOCRIT 31.4 % (42.0-52.0); HEMOGLOBIN 10.4 gm/dL (14.0-18.0); MCH 28.4 pg (26.0-34.0); MCHC 33.3 g/dL (28.0-37.0); MCV 85.3 fL (80.0-100.0); RBC 3.68 mil/uL (4.50-6.00); RDW-CV 15.5 % (10.5-14.5); WBC 10.3 thou/uL (4.0-11.0)
[2018-11-09 05:30] LABS: CALCIUM 8.1 mg/dL (8.5-10.1); CREATININE 1.7 mg/dL (0.6-1.3); POTASSIUM 4.2 mmol/L (3.5-5.1)
[2018-11-09 07:35] VITALS: BP 107/74
[2018-11-09 12:23] VITALS: BP 129/68
--- NOTE | 2018-11-10 14:23 | EEG ---
[address] [address] EEG STUDY REPORT Name: ALBARO HALE Stanislav Room: [address] IN M.R.#: [id number] Admission: 10/27/18 Attend Phys: Christi Alberto MD Discharge: 11/09/18 Date of : 43 Report #: [id number] THIS REPORT FOR: //name// CC: Christi Caputo DATE OF SERVICE: 11/03/2018 This patient is being evaluated for altered mental status. EEG was done by placing the electrode by standard 10-20 system of electrode placement. Both referential and sequential montages were used for recording. Background activity in this patient's EEG is about 8 Hz and 30 microvolt. The patient went to sleep and that was associated with bilateral slowing and vertex sharp waves. Photic stimulation was unremarkable. Throughout the record, no active epileptiform activity was noticed. EEG was intermixed with theta range slowing on both sides. IMPRESSION: This patient's EEG is intermixed with theta range slowing on both sides. That is a nonspecific abnormality, which can occur with dementia, effect of psychotropic medication, encephalopathy, etc. Clinical correlation is recommended. <ELECTRONICALLY SIGNED> By: Idris Benavides MD 11/10/18 1423 1807 17Idris Benavides MD /nt
--- NOTE | 2018-11-10 14:23 | CON ---
[address] [address] CONSULTATION Name: ALEXIA,ALBARO Stanislav Room: [address] IN .R.#: [id number] Admission: 10/27/18 Attend Phys: Christi Alberto MD Discharge: 11/09/18 Date of : 43 Report #: [id number] THIS REPORT FOR: //name// CC: Christi Caputo DATE OF SERVICE: 11/03/2018 HISTORY OF PRESENT ILLNESS: This is a 73-year-old male patient who was seen by me for altered mental status. The patient was discussed with the nurses last night and the patient was discussed with the nurses this morning. I reviewed the patient's record and it looks like his blood sugar was persistently running low. In fact, the patient's blood sugar went at one time less than 30 and on other occasion, it was 39 and it was persistently in 30s for multiple times. His blood sugar was better last night when I saw him and again see him this morning. He is somewhat responsive, but he is not markedly responsive. He wakes up and follows some commands intermittently. Nurses also indicate that this patient fluctuates. REVIEW OF SYSTEMS: Positive for multiple problems. He has a history of diabetes, congestive heart failure. He had a prior LA. He had some substernal chest pain. He has a history of stent placement. He has been seen by multiple consultants during this admission. He has a chronic renal disease and he did have acute renal injury. He had a shortness of breath. He is also being followed by renal. His ejection fraction is low and his creatinine has significantly increased since admission. His last GFR was 17. A 14-point review of systems was mainly from the record and this patient has numerous medical problems. He has a history of pulmonary edema, LA, renal failure, apparently a history of atrial fibrillation as I can tell from the records, all of it is being addressed by cardiology. Record indicates that he is on anticoagulation. PAST MEDICAL HISTORY: Positive for diabetes. FAMILY HISTORY: Unavailable. SOCIAL HISTORY: He does not smoke anymore. PHYSICAL EXAMINATION: It was carried out last night and this morning, he is drowsy. He wakes up, he follows simple commands. His memory is still poor, but his speech looks intact when he talks. Rest of the neurological examination was attempted, but it is difficult to carry out. His cranial nerve examination 2-12 was attempted, I do not have any good examination. I did not see any focality there. He moves all 4 extremities, but rest of the exam is difficult to tell. I tried to do position sense, tone and I was not successful. [place], [place] [address] CONSULTATION Name: ALBARO HALE Room: [address] IN M.R.#: [id number] Admission: 10/27/18 Attend Phys: Christi Alberto MD Discharge: 11/09/18 Date of : 43 Report #: [id number] not possible to carry out any fundus examination or any cerebellar examinations. He has a history of atrial fibrillation. He does have some difficulty with breathing, but still breathing is not labored. His blood pressure is 122/75, respirations 11, pulse is 93. LABORATORY DATA: Indicate a white count of 12.2. He did have a CT scan of the head yesterday that was reviewed that showed no acute changes. IMPRESSION: This patient's symptom is most likely secondary to encephalopathy caused by both his acute renal problems as well as pretty significant hypoglycemia this patient has. His CT scan is unremarkable and at this time, I think we need to concentrate in the management of his systemic problems. He is already anticoagulated and I am not sure we can do much neurologically at this stage. RECOMMENDATIONS: 1. We will get an EEG done. 2. I will add vitamin B12 to his regimen. 3. Otherwise, I do not have anything specific to add because the management is going to be the management of his systemic problem. More than 50 minutes of time was spent in this patient and half of that time was spent counseling and coordinating. <ELECTRONICALLY SIGNED> By: Idris Benavides MD 11/10/18 1423 0835 0330Idris Benavides MD /nt
== END 2018-11-09 13:02 | DRG 177 ==
LOC: M.ERS 20:19 → M.2W 21:11 → M.TBA-ER 21:11 → M.2W 21:27 → M.ICU 10-30 18:55 → M.2W 11-03 18:33
PROVIDERS: Family Medicine; Internal Medicine; Internal Medicine Nephrology; Registered Nurse; ADMIT Internal Medicine
PROC: 02HV33Z Insertion of Infusion Device into Superior Vena Cava, Percutaneous Approach (ICD-10-PCS; principal; 2018-10-30)
PROC: 5A09357 Assistance with Respiratory Ventilation, Less than 24 Consecutive Hours, Continuous Positive Airway Pressure (ICD-10-PCS; principal; 2018-10-30)
PROC: B548ZZA Ultrasonography of Superior Vena Cava, Guidance (ICD-10-PCS; principal; 2018-10-30)
PROC: 5A09357 Assistance with Respiratory Ventilation, Less than 24 Consecutive Hours, Continuous Positive Airway Pressure (ICD-10-PCS; 2018-10-31)
PROC: 5A09357 Assistance with Respiratory Ventilation, Less than 24 Consecutive Hours, Continuous Positive Airway Pressure (ICD-10-PCS; 2018-11-01)
PROC: 5A1D70Z Performance of Urinary Filtration, Intermittent, Less than 6 Hours Per Day (ICD-10-PCS; 2018-11-01)
DX: J69.0 Pneumonitis due to inhalation of food and vomit (principal); I50.43 Acute on chronic combined systolic (congestive) and diastolic (congestive) heart failure; I13.0 Hypertensive heart and chronic kidney disease with heart failure and stage 1 through stage 4 chronic kidney disease, or unspecified chronic kidney disease; N17.9 Acute kidney failure, unspecified; E87.1 Hypo-osmolality and hyponatremia; I24.9 Acute ischemic heart disease, unspecified; I25.110 Atherosclerotic heart disease of native coronary artery with unstable angina pectoris; E78.00 Pure hypercholesterolemia, unspecified; D64.9 Anemia, unspecified; D69.6 Thrombocytopenia, unspecified; J44.9 Chronic obstructive pulmonary disease, unspecified; E11.65 Type 2 diabetes mellitus with hyperglycemia; E87.5 Hyperkalemia; I48.2 Chronic atrial fibrillation; E11.22 Type 2 diabetes mellitus with diabetic chronic kidney disease; E78.5 Hyperlipidemia, unspecified; N18.3 Chronic kidney disease, stage 3 (moderate); I25.2 Old myocardial infarction; Z79.84 Long term (current) use of oral hypoglycemic drugs; Z95.5 Presence of coronary angioplasty implant and graft; Z83.3 Family history of diabetes mellitus; Z82.49 Family history of ischemic heart disease and other diseases of the circulatory system; Z87.891 Personal history of nicotine dependence; Z99.2 Dependence on renal dialysis

== ENCOUNTER 2018-12-05 17:35 | Inpatient (IN) | payer OTHER ==
[~2018-12-05] VITALS: Ht 177.8 cm; Wt 111.1 kg
[~2018-12-05 17:35] MED LIST changes: +ADVAIR HFA 230M12 GM INH; +HUMALOG100 UNIT/1 SUBQ; +VENTOLIN HFA 1818 GM INH
[2018-12-05 17:37] VITALS: BP 148/100
[2018-12-05 18:07] LABS: ABSOLUTE BASOPHILS 0.1 thou/uL (0.0-0.2); ABSOLUTE EOSINOPHILS 0.1 thou/uL (0.0-0.7); ABSOLUTE LYMPHOCYTES 1.6 thou/uL (0.8-5.3); ABSOLUTE MONOCYTES 0.6 thou/uL (0.0-1.2); ABSOLUTE NEUTROPHILS 6.5 thou/uL (1.6-8.1); BASOPHILS 1.1 %; EOSINOPHILS 0.6 %; HEMATOCRIT 37.2 % (42.0-52.0); HEMOGLOBIN 12.2 gm/dL (14.0-18.0); LYMPHOCYTES 17.6 %; MCH 27.8 pg (26.0-34.0); MCHC 32.7 g/dL (28.0-37.0); MPV 7.3 fl. (7.2-11.1); NUCLEATED RBCS 0 /100WBC; PLATELET COUNT* 426 thou/uL (150-400); POLYS 73.7 %; RBC 4.38 mil/uL (4.50-6.00); RDW-CV 17.2 % (10.5-14.5); WBC 8.9 thou/uL (4.0-11.0)
[2018-12-05 18:11] LABS: ANION GAP 7 mmol/L (7-16); BUN 35 mg/dL (7-18); CALCIUM 8.7 mg/dL (8.5-10.1); CHLORIDE 99 mmol/L (98-107); CO2 29 mmol/L (21-32); CREATININE 1.7 mg/dL (0.6-1.3); GLUCOSE 265 mg/dL (70-99); POTASSIUM 4.4 mmol/L (3.5-5.1); SODIUM 135 mmol/L (136-145)
[2018-12-05 18:14] LABS: APTT 25.4 Seconds (25.0-31.3); INR 1.1; PROTIME 11.3 Seconds (9.20-11.50)
[2018-12-05 18:17] LABS: BE -2.1 mmol/L (-2 to +3); PCO2 33.4 mmHg (35.0-45.0); PO2 76.3 mmHg (75.0-100.0); pH 7.428 (7.340-7.450)
[2018-12-05 18:24] LABS: ALBUMIN 3.1 g/dL (3.4-5.0); ALKALINE PHOSPHATASE 109 U/L (46-116); LIPASE 197 U/L (73-393); MAGNESIUM 1.7 mg/dL (1.8-2.4); NT-PRO BRAIN NAT PEPTIDE 18565 pg/mL (<300); SGOT 27 U/L (15-37); SGPT 37 U/L (30-65); TOTAL BILIRUBIN 0.8 mg/dL (<0.1-1.0); TOTAL PROTEIN 7.3 g/dL (6.4-8.2); TROPONIN-I LEVEL <0.06 ng/mL (<0.06)
[2018-12-05 19:42] VITALS: BP 153/96
[2018-12-05 20:00] VITALS: BP 146/104
[2018-12-05 21:22] VITALS: BP 146/104
[2018-12-06] VITALS: BP 157/107
[2018-12-06 04:00] VITALS: BP 152/99
--- NOTE | 2018-12-06 04:06 | NUR ---
TRANSFER FROM ED RECIEVED REPORT AND ASSUMED CARE AT 1999. 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 DISTOLIC BP ELEVATED, OTHER THAN THAT VITAL SIGNS STABLE. PT UP WITH SBA WITH WALKER. PT DENIES ANY PAIN AT THIS TIME. ASSESSMENT COMPLETED DISCUSSED PLAN OF CARE AND PT UNDERSTANDS. BED LOCKED AND CALL LIGHT WITHIN REACH. FALL PRECAUTIONS IN PLACE. HOURLY ROUNDING DONE AND ALL NEEDS MET. NURSING WILL CONTINUE TO MONITOR.
[2018-12-06 08:01] LABS: CALCIUM 8.8 mg/dL (8.5-10.1); CREATININE 1.7 mg/dL (0.6-1.3); POTASSIUM 4.9 mmol/L (3.5-5.1)
[2018-12-06 08:10] VITALS: BP 146/94
--- NOTE | 2018-12-06 11:34 | NUR ---
Pt is A&O. Resides at home with his son. Pt recently was at [facility], now back home with HH, Pt does not recall the name of the HH agency, and does not want to resume HH at [place]. Hx of [facility] HH. Pt has a walker and cane that he can use for mobility. Independent. Dtr has been providing transportation while on HH. No home o2. Goal is home at [place]. No needs.
[2018-12-06 12:06] VITALS: BP 149/88
--- NOTE | 2018-12-06 12:45 | EKG ---
[place] [address] ELECTROCARDIOGRAM REPORT Name: ALBARO HALE Room: [address] ADM IN .R.#: [id number] Admission: 12/05/18 Attend Phys: Jovanny Koehler Discharge: Date of : 43 Report #: [id number] THIS REPORT FOR: //name// [facility] ED Test Date: 2018-12-05 Test Time: 17:44:47 Pat Name: ALBARO HALE Department: Room: [facility] Gender: M Contract Implementation Analyst: Uri CHU : 1945 Requested By: Orville Hartman Order Number: [id number] MD: Cristóbal Akers Measurements Intervals [place] Rate: 83 P: OR: QRS: 4 QRSD: 150 T: 164 QT: 409 QTc: 481 Interpretive Statements Atrial fibrillation Left bundle branch block Compared to ECG 11/01/2018 11:43:55 ST (T wave) deviation no longer present Prolonged QT interval no longer present Electronically Signed On 12-06-2018 12:45:38 CDT by Cristóbal Akers [email or web address] <ELECTRONICALLY SIGNED> By: Cristóbal Akers MD, [facility] 12/06/18 1245 1744 1744 Cristóbal Akers MD, [facility] /EPI
--- NOTE | 2018-12-06 14:53 | 2DMMODE ---
[facility] [address] [place] [address] 2 D/M-MODE ECHOCARDIOGRAM Name: ALBARO HALE Stanislav Room: [address] IN [facility]#: [id number] Admission: 12/05/18 Attend Phys: Isidro Ugalde Discharge: Date of : 43 Date of Service: 12/06/18 1453 Report #: [id number] THIS REPORT FOR: //name// APPROVED REPORT Study performed: 12/06/2018 11:22:36 EXAM: Limited 2D Echocardiogram Patient Location: In-Patient Room #: [facility] Status: routine BSA: 2.28 HR: 87 bpm BP: 146/94 mmHg Rhythm: NSR Other Information Study Quality: Good Indications Congestive Heart Failure Dyspnea Pleural Effusion Volumes Left Atrial Volume (Systole) LA ESV Index: 43.20 mL/m2 Left Ventricle The left ventricle is normal size. Regional wall motion abnormalities are noted. There is normal left ventricular wall thickness. Left ventricular systolic function is mild to moderately decreased. LVEF is 40-45%. Right Ventricle Right ventricle is mildly dilated. The right ventricular systolic function is normal. Atria Left atrium is moderately dilated. The right atrium size is normal. Aortic Valve Mild aortic valve sclerosis. Mitral Valve [place] [address] [place] [address] 2 D/M-MODE ECHOCARDIOGRAM Name: ALBARO HALE Room: [address] IN M.R.#: [id number] Admission: 12/05/18 Attend Phys: Isidro Ugalde Discharge: Date of : 43 Date of Service: 12/06/181452 Report #: [id number] There is mitral annular calcification. Tricuspid Valve The tricuspid valve is normal in structure. Pulmonic Valve The pulmonary valve is normal in structure. Great Vessels The aortic root is normal in size. IVC is normal in size and collapses >50% with inspiration. Pericardium There is no pericardial effusion. Left pleural effusion. <Conclusion> There is normal left ventricular wall thickness. Left ventricular systolic function is mild to moderately decreased. LVEF is 40-45%. Left atrium is moderately dilated. Mild aortic valve sclerosis. There is mitral annular calcification. The tricuspid valve is normal in structure. IVC is normal in size and collapses >50% with inspiration. There is no pericardial effusion. Left pleural effusion. The left ventricle is normal size. <ELECTRONICALLY SIGNED> By: Cristóbal Akers MD, [facility] 12/06/181452 52 52 Cristóbal Akers MD, FACC /INF
[2018-12-06 15:33] VITALS: BP 117/78
--- NOTE | 2018-12-06 18:03 | NUR ---
WOUND CARE NOTE: CONSULT FOR COMPRESSION WRAPS, CHF BILAT LE EDEMA 2+ PITTING. SKIN IS WARM, DRY, BILAT ANKES WITH SCABS AT SOCK LEVEL, PT REPORTS INCREASE IN EDEMA IN THE LAST FEW DAYS. PTS LEGS WASHED WITH SOAP AND WATER, PATTED DRY, LOTION APPLIED AND BARRIOR CREAM TO SCABS ON BILAT ANKES. SIZE F TUBIGRIP APPLIED. PTS BILAT LEGS ELEVATED IN BED WITH PILLOWS. PT TOLERATED WELL. RECCOMEND: TUBIGRIP REMOVED DAILY FOR CARES. ELEVATE LEGS IN BED AND UP WHILE IN RECLINER. LIMIT AMOUNT OF TIME WITH LEGS DEPENDENT. MONITOR WEIGHT GAIN. TURN Q2 HRS. PT EDUCATED ON COMPRESSION AND ELEVATION TO REDUCE SWELLING, PT VERBALIZED UNDERSTANDING.
--- NOTE | 2018-12-06 18:49 | NUR ---
PT A/O X4, HAS BILAT LE PITTING EDEMA 2+. PT NOW HAS TUBIGRIPS FOR LE SWELLING. TOLERATED IT WELL. VSS, AFIB ON THE MONITOR. USES CALL LIGHT APPROPRIATLY. UP WITH 1-2 ASSIST, IS VERY WEAK, USES WALKER. RED BOTTOM, TURN Q2 HR. BARRIOR CREAM APPLIED. WILL CONTINUE TO MONITOR.
[2018-12-06 20:00] VITALS: BP 131/82
[2018-12-07] VITALS: BP 115/73
[2018-12-07 04:00] VITALS: BP 122/79
[2018-12-07 05:13] LABS: HEMATOCRIT 31.8 % (42.0-52.0); HEMOGLOBIN 10.4 gm/dL (14.0-18.0); MCH 27.4 pg (26.0-34.0); MCHC 32.5 g/dL (28.0-37.0); MCV 84.1 fL (80.0-100.0); MPV 7.1 fl. (7.2-11.1); RBC 3.79 mil/uL (4.50-6.00); RDW-CV 17.1 % (10.5-14.5); WBC 10.4 thou/uL (4.0-11.0)
--- NOTE | 2018-12-07 05:24 | NUR ---
ASSUMED CARE OF PT AFTER REPORT AT 1930. PT A&OX4. VSS. PHYSICAL ASSESSMENT COMPLETED AND CHARTED. PT ON O2 AT 2L NC. PT TRACING AFIB BBB ON TELE. PT DENIES PAIN OR SOA. PT HAD LOW BLOOD SUGAR- HYPOGYCEMIA PROTOCOL IN PLACE. PT TURNED TO SIDES. PT RESTED WELL ON BED. CALL LIGHT WITHIN REACH.
[2018-12-07 05:41] LABS: ALBUMIN 2.7 g/dL (3.4-5.0); CALCIUM 8.5 mg/dL (8.5-10.1); CREATININE 1.8 mg/dL (0.6-1.3); MAGNESIUM 1.8 mg/dL (1.8-2.4); POTASSIUM 4.9 mmol/L (3.5-5.1); TOTAL BILIRUBIN 0.5 mg/dL (<0.1-1.0); TOTAL PROTEIN 6.3 g/dL (6.4-8.2)
[2018-12-07 08:00] VITALS: BP 126/81
--- NOTE | 2018-12-07 10:50 | NUR ---
RECEIVED REPORT AND ASSUMED CARE OF PT AT 0735.PT IS A/OX4.TRACING AFIB WITH BBB ON THE MONITOR.IV PATENT AND SALINE LOCKED.ON 2 L NC.Q2 TURN.UP WITH 1-2.STRICT IO MONITORED.BLISTER AND EDEMA PRESENT ON BL LOWER EXTREMITIES.TURBI MENTALLY RETARDED TEACHER PLACED ON BOTH LEGS PER ORDER.POSITIONING CHANGED.ACCU CHECK EVERY 4 HRLY.NO COUGH AND NO COMPLAINTS OF PAIN.CALL LIGHT AND FALL PRECAUTIONS IN PLACE.HRLY ROUNDING DONE.WILL CONTINUE TO MONITOR.
[2018-12-07 11:45] VITALS: BP 114/66
--- NOTE | 2018-12-07 14:53 | NUR ---
RE: heart failure medication education I provided patient with a heart failure medication education handout and disscussed possible side effects. All patients questions were answered. Pharmacy available for any future questions. Thank you.
[2018-12-07 16:00] VITALS: BP 123/75
--- NOTE | 2018-12-07 16:56 | NUR ---
VSS.PT IS A/OX4.TRACING AFIB ON THE MONITOR.ON 2 L NC.IV PATENT AND SALINE LOCKED.PT MOBILIZED TO RECLINER AND TO BED.LOW BOTTOM AREA REDNESS.PT POSITION CHANGED EVERY 2 HRLY.BARRIER CREAM APPLIED ON REDNESS AREA.PT IO STRICTLY MONITORED.TURBI ENGINE LATHE TENDER CONTINUE ON BL LOWER EXTREMITIES.ON ACCU CHECK.HRLY ROUNDING COMPLETED .CALL LIGHT AND FALL PRECAUTIONS IN PLACE.WILL CONTINUE TO MONITOR.
[2018-12-07 20:00] VITALS: BP 144/80
[2018-12-08] VITALS: BP 111/61
[2018-12-08 04:00] VITALS: BP 110/74
--- NOTE | 2018-12-08 05:21 | NUR ---
ASSUMED CARE OF PT AFTER REPORT AT 1930. PT A&OX4. VSS. PHYSICAL ASSESSMENT COMPLETED AND CHARTED. PT ON O2 AT 2L NC. PT TRACING AFIB BBB ON TELE. PT UP WITH 1 ASSIST. PT DENIES ANY PAIN OR DISCOMFORT. PT TURNED TO SIDES. PT RESTED WELL ON BED. HOURLY ROUNDING OBSERVED. CALL LIGHT WITHIN REACH.
[2018-12-08 05:39] LABS: CALCIUM 8.5 mg/dL (8.5-10.1); CREATININE 1.7 mg/dL (0.6-1.3); MAGNESIUM 1.8 mg/dL (1.8-2.4); POTASSIUM 4.5 mmol/L (3.5-5.1)
[2018-12-08 05:41] LABS: HEMATOCRIT 33.9 % (42.0-52.0); HEMOGLOBIN 11.2 gm/dL (14.0-18.0); MCHC 33.1 g/dL (28.0-37.0); MCV 84.5 fL (80.0-100.0); MPV 7.4 fl. (7.2-11.1); RBC 4.01 mil/uL (4.50-6.00); RDW-CV 17.3 % (10.5-14.5); WBC 9.4 thou/uL (4.0-11.0)
[2018-12-08 07:54] VITALS: BP 127/77
--- NOTE | 2018-12-08 09:36 | NUR ---
RECEIVED REPORT AND ASSUMED CARE OF PT AT 0735.A/OX4.TRACING AFIB ON THE MONITOR.IV PATENT AND SALINE LOCKED.UP WITH 1-2 TO BED SIDE COMORD.BM TODAY.Q 2 TURN.TUBI INFUSION RN STILL APPLIED TO PT.WOUND CARE GIVEN ON BL LOWER EXTREMITIES.ON 2 L NC.BARRIER CREAM APPLIED ON BOTTOM RED AREA.NO COMPLAINTS OF CHEST PAIN.SAFETY PRECAUTIONS IN PLACE.WILL CONTINUE TO MONITOR.
[2018-12-08 11:48] VITALS: BP 135/71
--- NOTE | 2018-12-08 12:50 | NUR ---
Nutrition: RD ordered Matthew bid to aid in wound healing. Pt has pressure ulcers on Rt and Lt buttocks. 2gm Na diet. 2+ edema in BLE. Wt: 256#. Alb 2.7, prealb 16.5, A1c 11%, BG 170 currently. H/o COPD, DM II, CKD III, HTN. Increased nutrient needs R/T wound healing AEB ulcers on buttocks. Matthew ordered. Mild risk. Hopeful for good po intake, good hydration. Follow up 12/15/18.
--- NOTE | 2018-12-08 13:23 | NUR ---
Spoke with , plan dc tomorrow. Per Pt he does not want HH at dc, Pt was current with [facility] at dc.
[2018-12-08 16:12] VITALS: BP 111/68
[2018-12-08 20:00] VITALS: BP 114/72
[2018-12-09 00:07] VITALS: BP 107/53
[2018-12-09 03:50] LABS: HEMATOCRIT 32.1 % (42.0-52.0); HEMOGLOBIN 10.6 gm/dL (14.0-18.0); MCH 27.8 pg (26.0-34.0); MCV 84.2 fL (80.0-100.0); MPV 7.3 fl. (7.2-11.1); RBC 3.81 mil/uL (4.50-6.00); RDW-CV 17.5 % (10.5-14.5); WBC 8.7 thou/uL (4.0-11.0)
[2018-12-09 04:00] VITALS: BP 97/60
[2018-12-09 04:26] LABS: ALBUMIN 2.5 g/dL (3.4-5.0); CALCIUM 8.4 mg/dL (8.5-10.1); CREATININE 1.7 mg/dL (0.6-1.3); MAGNESIUM 1.7 mg/dL (1.8-2.4); TOTAL BILIRUBIN 0.4 mg/dL (<0.1-1.0); TOTAL PROTEIN 5.9 g/dL (6.4-8.2)
--- NOTE | 2018-12-09 04:38 | NUR ---
ASSUMED CRAE OF PT AFTER REPORT AT 1930. PT A&OX4. VSS. PHYSICAL ASSESSMENT COMPLETED AND CHARTED. PT ON O2 AT 2L. PT TRACING AFIB BBB ON TELE. PT UP WITH 1-2 ASSIST. PT TURNED TO SIDES. PT DENIES ANY PAIN OR DISCOMFORT. PT RESTED WELL ON BED. HOURLY ROUNDING OBSERVED. CALL LIGHT WITHIN REACH.
[2018-12-09 07:10] VITALS: BP 124/77
--- NOTE | 2018-12-09 08:02 | NUR ---
INITAL ASSESSMENT COMPLETED CHARTED. TRACING AFIB WITH BBB ON MONITOR. PT CURRENTLY ON 1LPM VIA NC WITH O2 SAT AT 98%. VSS. PT SD ANY FURTHER NEEDS AT THIS TIME. HOURLY ROUNDING AND FALL PRECAUTIONS IN PLACE. CLWR.
[2018-12-09 12:02] VITALS: BP 113/61
--- NOTE | 2018-12-09 12:57 | NUR ---
SUPERVISOR ROLLER PRINTING SPOKE TO THE PATIENT TO DISCUSS DISCHARGE PLANNING AND SKILLED AT D/C. PATIENT INFORMS THAT HE HAD RECENTLY BEEN TO SKILLED AT [facility] AND 'THEY KICKED ME OUT', BUT ALSO INFORMS THAT HE IS OPEN TO RETURNING THERE MFI NEEDED. D/C SILO MAN SPOKE TO EMMA WITH ADMISSIONS AT [facility] AND SHE CONFIRMS THAT THE PATIENT HAD BEEN SKILLED RECENTLY AND HAD 'USED HIS 20 DAYS, SO HE WILL HAVE A CO-PAY OF 167.50'. D/C SILO MAN SPOKE TO THE PATIENT TO INFORM OF THIS AND HE NOW DECLINES SKILLED STATING 'THERES NO WAY I'M PAYING THAT, SO I GUESS I'M GOING HOME'. D/C SILO MAN INFORMED REVENUE FIELD AGENT OF THIS INFO. CM WILL REMAIN AVAILABLE TO ASSIST AND FOLLOW NEEDED.
[2018-12-09] MEDS ORDERED: BUMETANIDE 1 MG1 M1 PO (14:21)
[2018-12-09] MEDS ORDERED: CARVEDILOL12.5 MG PO (14:21)
[2018-12-09] MEDS ORDERED: ENTRESTO 24 MG1 EACH PO (14:21)
[2018-12-09] MEDS ORDERED: PULMICORT0.5 MG/2 M INH (14:21)
[2018-12-09] MEDS ORDERED: SPIRONOLACTONE25 MG PO (14:21)
--- NOTE | 2018-12-09 14:41 | NUR ---
Pt discharging to home today, declined HH. Neb order faxed to [facility], to be delivered this evening.
[2018-12-09 15:16] VITALS: BP 113/61
== END 2018-12-09 15:34 | disposition home or self-care (01) | DRG 291 ==
LOC: M.ERS 17:35 → M.2W 18:31 → M.TBA-ER 18:31 → M.ERS 19:44 → M.2W 20:00
PROVIDERS: Emergency Medicine Emergency Medical Services; Internal Medicine; Registered Nurse; ADMIT Internal Medicine
DX: I13.0 Hypertensive heart and chronic kidney disease with heart failure and stage 1 through stage 4 chronic kidney disease, or unspecified chronic kidney disease (principal); N17.0 Acute kidney failure with tubular necrosis; I50.43 Acute on chronic combined systolic (congestive) and diastolic (congestive) heart failure; N18.3 Chronic kidney disease, stage 3 (moderate); D64.9 Anemia, unspecified; J44.9 Chronic obstructive pulmonary disease, unspecified; I25.10 Atherosclerotic heart disease of native coronary artery without angina pectoris; I48.2 Chronic atrial fibrillation; E78.5 Hyperlipidemia, unspecified; E11.22 Type 2 diabetes mellitus with diabetic chronic kidney disease; E78.00 Pure hypercholesterolemia, unspecified; Z91.041 Radiographic dye allergy status; Z87.891 Personal history of nicotine dependence; Z83.3 Family history of diabetes mellitus; Z82.49 Family history of ischemic heart disease and other diseases of the circulatory system; Z95.5 Presence of coronary angioplasty implant and graft; Z79.899 Other long term (current) drug therapy

== ENCOUNTER 2019-04-11 07:33 | Inpatient (IN) | payer OTHER ==
[~2019-04-11] VITALS: Ht 177.8 cm; Wt 108.9 kg
[~2019-04-11 07:33] MED LIST changes: +BUMETANIDE 1 MG1 M1 PO; +CARVEDILOL12.5 MG PO; +ENTRESTO 24 MG1 EACH PO; +PULMICORT0.5 MG/2 M INH; +SPIRONOLACTONE25 MG PO
[2019-04-11 07:53] VITALS: BP 119/67
[2019-04-11 11:13] LABS: ABSOLUTE BASOPHILS 0.1 thou/uL (0.0-0.2); ABSOLUTE LYMPHOCYTES 0.8 thou/uL (0.8-5.3); ABSOLUTE MONOCYTES 0.7 thou/uL (0.0-1.2); ABSOLUTE NEUTROPHILS 6.7 thou/uL (1.6-8.1); BASOPHILS 0.7 %; EOSINOPHILS 0.5 %; HEMATOCRIT 35.7 % (42.0-52.0); HEMOGLOBIN 11.7 gm/dL (14.0-18.0); LYMPHOCYTES 10.2 %; MCH 27.3 pg (26.0-34.0); MCHC 32.7 g/dL (28.0-37.0); MCV 83.4 fL (80.0-100.0); MONOCYTES 8.2 %; MPV 7.3 fl. (7.2-11.1); NUCLEATED RBCS 0 /100WBC; PLATELET COUNT* 368 thou/uL (150-400); POLYS 80.4 %; RBC 4.28 mil/uL (4.50-6.00); RDW-CV 22.5 % (10.5-14.5); WBC 8.3 thou/uL (4.0-11.0)
[2019-04-11 11:29] LABS: ANION GAP 11 mmol/L (7-16); BUN 72 mg/dL (7-18); CALCIUM 8.7 mg/dL (8.5-10.1); CHLORIDE 102 mmol/L (98-107); CO2 25 mmol/L (21-32); CREATININE 1.9 mg/dL (0.6-1.3); GLUCOSE 119 mg/dL (70-99); POTASSIUM 5.4 mmol/L (3.5-5.1); SODIUM 138 mmol/L (136-145); TROPONIN-I LEVEL <0.06 ng/mL (<0.06)
[2019-04-11 11:37] LABS: PLATELET ESTIMATE ADEQUATE
[2019-04-11 11:38] LABS: ANISOCYTOSIS 1+; HYPOCHROMASIA 2+
[2019-04-11 11:39] LABS: MICROCYTES Occasional
[2019-04-11 11:44] LABS: POIKILOCYTOSIS 1+
[2019-04-11 11:45] LABS: OVALOCYTES Occasional
[2019-04-11 13:19] LABS: URINE BILIRUBIN NEGATIVE (Negative); URINE BLOOD NEGATIVE (Negative); URINE CLARITY CLEAR; URINE COLOR YELLOW; URINE GLUCOSE-RANDOM NEGATIVE (Negative); URINE KETONES NEGATIVE (Negative); URINE LEUKOCYTES-REFLEX NEGATIVE (Negative); URINE NITRITE-REFLEX NEGATIVE (Negative); URINE PROTEIN 1+ (Negative); URINE SPECIFIC GRAVITY 1.015 (1.005-1.030); URINE UROBILINOGEN 0.2 E.U./dl (0.2-1.0)
[2019-04-11 16:54] VITALS: BP 122/76
[2019-04-11 19:34] VITALS: BP 143/80
[2019-04-11 21:30] VITALS: BP 132/81
[2019-04-12 01:28] VITALS: BP 132/81
[2019-04-12 04:22] LABS: ALBUMIN 2.4 g/dL (3.4-5.0); CALCIUM 8.5 mg/dL (8.5-10.1); CREATININE 1.9 mg/dL (0.6-1.3); POTASSIUM 5.8 mmol/L (3.5-5.1)
[2019-04-12 04:26] LABS: HEMATOCRIT 33.1 % (42.0-52.0); HEMOGLOBIN 10.6 gm/dL (14.0-18.0); MCHC 31.9 g/dL (28.0-37.0); MCV 84.8 fL (80.0-100.0); MPV 7.3 fl. (7.2-11.1); RBC 3.91 mil/uL (4.50-6.00); RDW-CV 22.1 % (10.5-14.5); WBC 6.4 thou/uL (4.0-11.0)
--- NOTE | 2019-04-12 06:56 | NUR ---
PATIENT ADMTTED TO ROOM 114 FROM THE ER AT APPROXIMATELY 2100. VSS ON 2L 02 VIA NASAL CANNULA. PATIENT IS FORGETFUL AND CONFUSED AT TIMES. PATIENT HAS REMAINED NPO SINCE BEING ADMITTED TO UNIT D/T SCHEDULED SURGERY TODAY. PICTURES TAKEN OF WOUNDS AND PLACED IN CHART AND WOUND CARE CONSULTED. ASSESSMENT CHARTED. REYNA TO DEPENDENT DRAINAGE WITH DARK JOHANNE COLORED URINE OUTPUT. IV IN RIGHT WRIST-SL. FALL PRECAUTIONS IN PLACE AND HOURLY ROUNDS MADE. WILL CONTINUE WITH PLAN OF CARE AND NURSING TO MONITOR.
[2019-04-12 08:00] VITALS: BP 111/75
[2019-04-12 09:24] LABS: INR 1.3; PROTIME 13.2 Seconds (9.20-11.50)
--- NOTE | 2019-04-12 10:37 | NUR ---
WOUND CARE NOTE: CONSULT RECEIVED FOR WOUNDS. PATIENT CURRENTLY IN OR, WILL ATTEMPT TO ASSESS TOMORROW.
--- NOTE | 2019-04-12 11:30 | NUR ---
PT.IN SURGERY. SPOKE WITH EMMA/[facility]. HE IS LIVES THERE IN LTC BUT IS CURRENTLY BEING SKILLED THROUGH HIS INSURANCE FOR THERAPIES. FAXED H&P AND ORTHO CONSULT TO EMMA. SHE REQUESTED MORE RECORDS WHEN THEY BECOME AVAILABLE.
--- NOTE | 2019-04-12 13:02 | NUR ---
ASSUMED CARE OF CARE OF PATIENT AT APPROX 0730. ALERT AND OREIENTED X4. ASSESSMENT COMPLETED AND CHARTED. VSS ON 2 LITERS 02. PATIENTS DAUGHTER CONTACTED THIS MORNING FOR SURGERY AUTHORIZATION, 2 NURSE VERIFICATION WITH TREY RUFF. PATIENT TAKEN TO PACU AT APPROX 0830.
[2019-04-12 13:09] LABS: HEMATOCRIT 35.6 % (42.0-52.0); HEMOGLOBIN 11.3 gm/dL (14.0-18.0); MCH 27.5 pg (26.0-34.0); MCHC 31.7 g/dL (28.0-37.0); MCV 86.6 fL (80.0-100.0); MPV 7.7 fl. (7.2-11.1); RBC 4.11 mil/uL (4.50-6.00); RDW-CV 21.9 % (10.5-14.5); WBC 9.7 thou/uL (4.0-11.0)
[2019-04-12 13:17] LABS: ANION GAP 12 mmol/L (7-16); BUN 76 mg/dL (7-18); CALCIUM 7.8 mg/dL (8.5-10.1); CHLORIDE 103 mmol/L (98-107); CO2 23 mmol/L (21-32); CREATININE 2.3 mg/dL (0.6-1.3); GLUCOSE 245 mg/dL (70-99); POTASSIUM 5.7 mmol/L (3.5-5.1); SODIUM 138 mmol/L (136-145)
[2019-04-12 13:31] LABS: ALBUMIN 2.2 g/dL (3.4-5.0); ALKALINE PHOSPHATASE 126 U/L (46-116); NT-PRO BRAIN NAT PEPTIDE 15204 pg/mL (<300); SGOT 34 U/L (15-37); SGPT 33 U/L (30-65); TOTAL BILIRUBIN 0.9 mg/dL (<0.1-1.0); TOTAL PROTEIN 5.8 g/dL (6.4-8.2); TROPONIN-I LEVEL <0.06 ng/mL (<0.06)
[2019-04-12 13:47] LABS: BE -9.7 mmol/L (-2 to +3)
[2019-04-12 13:51] LABS: PCO2 53.1 mmHg (35.0-45.0); pH 7.169 (7.340-7.450)
[2019-04-12 13:52] LABS: PO2 316.6 mmHg (75.0-100.0)
--- NOTE | 2019-04-12 15:01 | EKG ---
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
--- NOTE | 2019-04-12 15:01 | EKG ---
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: EV : 1945 Requested By: Orville Hartman Order Number: [id number] MD: Cristóbal Akers Measurements Intervals [place] Rate: 90 P: RI: QRS: 100 QRSD: 135 T: 160 QT: 390 QTc: 478 Interpretive Statements Atrial fibrillation LBBB Abnormal lateral Q waves Compared to ECG 01/17/2019 21:16:23 Intraventricular conduction delay now present Q waves now present LEFT BUNDLE BRANCH BLOCK persists Electronically Signed On 04-12-2019 15:00:44 CDT by Cristóbal Akers [email or web address] <ELECTRONICALLY SIGNED> By: Cristóbal Akers MD, [facility] 04/12/19 1500 1056 1056 Cristóbal Akers MD, [facility] /EPI
[2019-04-12 15:35] LABS: BE 2.5 mmol/L (-2 to +3); PO2 90.2 mmHg (75.0-100.0)
[2019-04-12 15:36] LABS: pH 7.242 (7.340-7.450)
[2019-04-12 15:38] LABS: HEMOGLOBIN 8.6 gm/dL (14.0-18.0); MCH 26.8 pg (26.0-34.0); MCV 83.7 fL (80.0-100.0); MPV 7.2 fl. (7.2-11.1); RBC 3.23 mil/uL (4.50-6.00); RDW-CV 21.6 % (10.5-14.5)
[2019-04-12 15:39] LABS: PCO2 73.5 mmHg (35.0-45.0)
[2019-04-12 15:45] LABS: CALCIUM 7.8 mg/dL (8.5-10.1); CREATININE 1.8 mg/dL (0.6-1.3); POTASSIUM 5.3 mmol/L (3.5-5.1)
--- NOTE | 2019-04-12 16:13 | 2DMMODE ---
[place] [address] 2 D/M-MODE ECHOCARDIOGRAM Name: ALBARO HALE Stanislav Room: [address] IN [facility]#: [id number] Admission: 04/11/19 Attend Phys: Brain Herring Discharge: Date of : 43 Date of Service: 04/12/19 1612 Report #: [id number] THIS REPORT FOR: //name// APPROVED REPORT Study performed: 04/12/2019 12:45:56 EXAM: Comprehensive 2D, Doppler, and color-flow Echocardiogram Patient Location: In-Patient Room #: 114 Status: stat BSA: 2.26 HR: 62 bpm BP: 134/105 mmHg Rhythm: NSR Other Information Study Quality: Good Indications Post code 2D Dimensions IVSd: 16.52 (7-11mm) LVOT Diam: 22.98 (18-24mm) LVDd: 28.19 mm PWd: 16.28 (7-11mm) Ascending Ao: 30.50 (22-36mm) LVDs: 23.67 (25-40mm) Aortic Root: 32.55 mm Left Ventricle The left ventricle is normal size. There is global hypokinesis. Moderate concentric left ventricular hypertrophy. Left ventricular systolic function is severely decreased. LVEF is 15-20%. Right Ventricle Right ventricle is severely dilated. Atria The left atrium size is normal. Right atrium is severely dilated. Aortic Valve The aortic valve is normal in structure. No [place] [address] 2 D/M-MODE ECHOCARDIOGRAM Name: ALBARO HALE Room: [address] IN .R.#: [id number] Admission: 04/11/19 Attend Phys: Brain Herring Discharge: Date of : 43 Date of Service: 04/12/191611 Report #: [id number] Mitral Valve There is mitral annular calcification. There is no mitral valve regurgitation noted. Tricuspid Valve The tricuspid valve is normal in structure. There is no tricuspid valve regurgitation noted. Pulmonic Valve Mild pulmonic regurgitation. Great Vessels The aortic root is normal in size. IVC is dilated. Pericardium Trace pericardial effusion. Left pleural effusion. <Conclusion> The left ventricle is normal size. Moderate concentric left ventricular hypertrophy. Left ventricular systolic function is severely decreased. LVEF is 15-20%. There is global hypokinesis. Right ventricle is severely dilated. IVC is dilated. <ELECTRONICALLY SIGNED> By: Lazaro Patiño MD, [facility] 04/12/191611 11 1612 Lazaro Patiño MD, FACC /INF
[2019-04-12 16:40] VITALS: BP 111/75
--- NOTE | 2019-04-12 16:58 | EKG ---
[place] [address] ELECTROCARDIOGRAM REPORT Name: ALBARO HALE Room: [address] ADM IN M.R.#: [id number] Admission: 04/11/19 Attend Phys: Eric Mullen Discharge: Date of : 43 Report #: [id number] THIS REPORT FOR: //name// [facility] Test Date: 2019-04-12 Test Time: 12:35:31 Pat Name: ALBARO HALE Department: Room: [facility] Gender: M Airfield Manager: : 1945 Requested By: Brain Herring Order Number: [id number] Velma MD: Lazaro Patiño Measurements Intervals [place] [facility] Rate: 79 P: 58 DE: 217 QRS: 114 QRSD: 149 T: 31 QT: 444 QTc: 510 Interpretive Statements Sinus rhythm Left bundle-branch block Compared to ECG 01/17/2019 21:16:23 Atrial fibrillation a longer present Electronically Signed On 04-12-2019 16:57:44 CDT by Lazaro Patiño [email or web address] <ELECTRONICALLY SIGNED> By: Lazaro Patiño MD, [facility] 04/12/19 1657 1235 1235 Lazaro Patiño MD, FAC /EPI
--- NOTE | 2019-04-12 17:53 | NUR ---
1600 PT ARRIVED WITH IR STAFF, 30MCG/MIN EPI INFUSING, PT BRADYCARDIA ON MONITOR 30'S, DR SAMANO AT BEDSIDE. MULTIPLE DOSES OF EPI AND ATROPINE GIVEN. ANESTHESIA REPORTED FAINT PULSE. FAMILY RETRIEVED FROM WAITING ROOM, KAYCEE, DAUGHTER WISHES TO MAKE PT A DNR, DR SAMANO AT BEDSIDE UPDATING FAMILY ON STATUS AND PROGNOSIS. MULTIPLE LINES AND TUBES IN PLACE. 1640 PT PRONOUNCED BY CHAPIN VALDIVIA RN AND GRACE BRIGGS RN, PT HAS ZERO PUPILLARY RESPONSE, ZERO GAG REFLUX, NO SPONTANEOUS BREATHING, NO SPONTANEOUS PULSE, BOTH RNS LISTENED FOR 1MIN. 1650 CORE EXTRUDER CALLED, WILL SIGN CERTIFICATE BY MEDICAL RECORDS.
--- NOTE | 2019-04-13 09:14 | NUR ---
PT. PRIOR TO O.T. EVAL.
--- NOTE | 2019-04-14 16:43 | CARD ---
[address] [address] CARDIAC CATH REPORT Name: ALBARO HALE Room: [address] [place] .R.#: [id number] Admission: 04/11/19 Attend Phys: Eric Mullen Discharge: 04/12/19 Date of : 43 Report #: [id number] THIS REPORT FOR: //name// APPROVED REPORT Study performed: 04/12/2019 14:16:41 Patient Details Patient Status: In-Patient Room #: ICU5 The patient is a 73 year-old male Event Personnel Lazaro Patiño Director Network Development, Itzel Saldana RN Client Integration Manager, Cornelius Lindquist CLINICAL TRIAL HEAD Scrub, Liya Sullivan RTR Monitor, Carolyn Ramsey RN Client Integration Manager, Martha Jerez Client Integration Manager, Yisel Castillo RTR Scrub Procedures Performed Art Access - R femoral artery* Coronary Angiography Only, Selective Right and Left Coronary Angiography Risk Factors Coronary Artery Disease Previous Procedures/Diagnoses Previous PCI Procedure Narrative The patient was brought emergently to the Cardiac Catheterization Laboratory and was prepped and draped in a sterile manner. The right femoral was infiltrated with 2% Lidocaine subcutaneous anesthesia. A 6fr Ultimum Sheath sheath was inserted into the right femoral artery. Coronary angiography was performed using coronary diagnostic catheters. The right coronary system was accessed and visualized with a 6F JR4 Diagnostic catheter. The left coronary system was accessed and visualized with a Diagnostic 6Fr JL4 catheter. The patient was intubated upon arrival with Anesthesia providing airway management. Dr. Sherman had previously performed pulmonary angiogram. Patient was very unstable during the procedure with CPR in progress and Code Medications given multiple times during previous procedure. The Venous sheath placed by Dr. Sherman and the Arterial Sheath placed during this procedure were sutured in place and connected per protocol to Heparinized Saline pressure bags. Intra[place] [address] CARDIAC CATH REPORT Name: ALBARO HALE Room: [address] [place] ..#: [id number] Admission: 04/11/19 Attend Phys: Eric Mullen Discharge: 04/12/19 Date of : 43 Report #: [id number] No Sedation given. See anesthesia record for any other medications. Fluoro Time: 16.2 minutes Dose: DAP [id number] cGycm2 1543 mGy Contrast Type and Amount: Visipaque 70 ml Diagnostic Cath LAD Widely patent stent distally. The proximal and mid vessel are free of significant disease. Diagonal 1 Free of significant disease. Circumflex No significant coronary artery disease. The distal vessel is of small caliber. OM1 A single moderate sized branched obtuse marginal branch is free of significant disease. Right Coronary Widely patent without hemodynamically significant stenoses. R PDA Widely patent without hemodynamically significant stenoses. RPLV Widely patent without hemodynamically significant stenoses. Ramus Large and branched moderately plaqued proximally without hemodynamically significant stenoses. Hemodynamics The NIBP was 128/61 at 3:04 pm. Arterial pressure was not accurately assessed due to patient condition and process of CPR. Conclusion 1. Widely patent stent noted in the distal LAD. 2. No other hemodynamically significant coronary artery disease noted. <ELECTRONICALLY SIGNED> By: Lazaro Patiño MD, FACC 04/14/191641 41 41Micyanna Patiño MD, FACC /INF
--- NOTE | 2019-04-20 06:32 | OP ---
[facility] [address] [place] [address] OPERATIVE REPORT Name: ALEXIAALBARO Stanislav Room: [address] [place] M.R.#: [id number] Admission: 04/11/19 Attend Phys: Eric Mullen Discharge: 04/12/19 Date of : 43 Report #: [id number] THIS REPORT FOR: //name// CC: Tono Herring DATE OF SERVICE: 04/12/2019 PREOPERATIVE DIAGNOSIS: Closed intertrochanteric fracture, left hip. POSTOPERATIVE DIAGNOSIS: Closed intertrochanteric fracture, left hip. OPERATION PERFORMED: Open reduction and internal fixation, left hip with cephalomedullary mark. Physician directed fluoroscopy under [address] Whalen. SURGEON: Lazaro Whalen DO. ASSOCIATE: Umesh Gann. SECOND ADMINISTRATIVE EXECUTIVE: Russell Onofre. ANESTHESIA: General. GROSS PATHOLOGY: There was evidence of a closed intertrochanteric fracture of the left hip. IMPLANTS UTILIZED: Dmitri gamma nail. DESCRIPTION OF PROCEDURE: The patient was brought to the operating room where general anesthetic was administered. Preoperative antibiotics were given. The patient was placed on the fracture table. The left hip was reduced, noted to be in acceptable position by the C-arm. The C-arm was used intermittently through surgery under my direction. Hibiclens scrub and a ChloraPrep, prep were done to the left hip, leg in the usual manner. The patient was draped in a sterile manner. Incision was then made approximately 2 inches in length at the greater trochanter area. This was carried down through the skin and subcuticular material by sharp dissection. By sharp and blunt dissection, the tip of the greater trochanter was identified. Starting awl was utilized to start a hole in this region. The guidewire was placed down the shaft of the femur viewed with the C-arm and noted to be in the canal. The femur was then reamed to 13.5 mm slightly distal where the mark were in and 15.5 mm reamed to the area of the lesser trochanter. The gamma mark was assembled, placed over the guidewire to the appropriate depth. The guidewire was removed. Utilizing the guide through a small incision, the guidewire was inserted into the femoral neck and head to [address] [address] OPERATIVE REPORT Name: ALBARO HALE Room: [address] IN [facility].#: [id number] Admission: 04/11/19 Attend Phys: Eric Mullen Discharge: 04/12/19 Date of : 43 Report #: [id number] the appropriate position confirmed with the C-arm. Measurements were taken. The reamer was used to ream over the guidewire. The lag screw was then placed over the guidewire and brought the proper position. The proximal set screw was then tightened into the lag screw and backed off a quarter turn. Again it noted to be in good position with the C-arm. The guidewire was removed. Utilizing the guide, the transverse screw was placed through the distal portion of the mark and bone in the usual manner. The instrumentation was removed with final pictures revealed an acceptable position of the fracture site and implant devices. The deep tissue was closed with Vicryl suture, subcutaneous with 2-0 Vicryl and efrain on the skin. Estimated blood loss was 150 mL. The wounds were thoroughly irrigated throughout the entire procedure. Needle and sponge count reported as correct. The area was anesthetized with Marcaine, approximately 20 mL of 0.5% plain. <ELECTRONICALLY SIGNED> By: Albaro Reyna DO 04/20/19 0632 [id number] Whalen DO /inocencio
== END 2019-04-12 16:40 | DRG 956 ==
LOC: M.ERS 07:33 → M.ORTHSURG 11:09 → M.TBA-ER 11:09 → M.ORTHSURG 20:56 → M.ICU 04-12 14:54
PROVIDERS: Emergency Medicine Emergency Medical Services; Internal Medicine Cardiovascular Disease; Orthopaedic Surgery; ADMIT Internal Medicine
PROC: 5A12012 Performance of Cardiac Output, Single, Manual (ICD-10-PCS; principal; 2019-04-12)
PROC: 02HV33Z Insertion of Infusion Device into Superior Vena Cava, Percutaneous Approach (ICD-10-PCS; principal; 2019-04-12)
PROC: B548ZZA Ultrasonography of Superior Vena Cava, Guidance (ICD-10-PCS; principal; 2019-04-12)
PROC: 3E03317 Introduction of Other Thrombolytic into Peripheral Vein, Percutaneous Approach (ICD-10-PCS; principal; 2019-04-12)
PROC: 0QS704Z Reposition Left Upper Femur with Internal Fixation Device, Open Approach (ICD-10-PCS; principal; 2019-04-12)
PROC: 5A2204Z Restoration of Cardiac Rhythm, Single (ICD-10-PCS; principal; 2019-04-12)
DX: S72.142A Displaced intertrochanteric fracture of left femur, initial encounter for closed fracture (principal); T79.1XXA Fat embolism (traumatic), initial encounter; J96.02 Acute respiratory failure with hypercapnia; E43 Unspecified severe protein-calorie malnutrition; N17.9 Acute kidney failure, unspecified; I50.22 Chronic systolic (congestive) heart failure; I13.0 Hypertensive heart and chronic kidney disease with heart failure and stage 1 through stage 4 chronic kidney disease, or unspecified chronic kidney disease; I42.9 Cardiomyopathy, unspecified; I46.9 Cardiac arrest, cause unspecified; I95.9 Hypotension, unspecified; E87.5 Hyperkalemia; E86.0 Dehydration; I48.0 Paroxysmal atrial fibrillation; N18.9 Chronic kidney disease, unspecified; E11.22 Type 2 diabetes mellitus with diabetic chronic kidney disease; I25.10 Atherosclerotic heart disease of native coronary artery without angina pectoris; E78.00 Pure hypercholesterolemia, unspecified; Z68.34 Body mass index [BMI] 34.0-34.9, adult; Z87.891 Personal history of nicotine dependence; Z79.01 Long term (current) use of anticoagulants; Z95.5 Presence of coronary angioplasty implant and graft; Z79.4 Long term (current) use of insulin; Z79.899 Other long term (current) drug therapy; Z91.041 Radiographic dye allergy status; Z83.3 Family history of diabetes mellitus; Z82.49 Family history of ischemic heart disease and other diseases of the circulatory system; W07.XXXA Fall from chair, initial encounter; Y93.89 Activity, other specified; Y92.89 Other specified places as the place of occurrence of the external cause; Y99.8 Other external cause status